=== PATIENT | male | born 1975 | race Caucasian/White ===

== ENCOUNTER 2020-05-31 11:57 | Outpatient (CLI) | payer BC, SELFPAY ==
[2020-05-31 12:23] LABS: Basophils Percent Auto 0.2 % (0.2-1.2); Eosinophils Absolute Auto 0.2 K/mm3 (0-0.3); Eosinophils Percent Auto 1.3 % (0-4.4); Hematocrit 49.1 % (42.0-52.0); Hemoglobin 16.8 g/dL (14.0-18.0); Immature Granulocyte Absolute 0.06 K/mm3 (0.00-0.031); Immature Granulocyte Percent A 0.4 % (0-0.5); Lymphocytes Absolute Auto 2.75 K/mm3 (0.9-3.2); Lymphocytes Percent Auto 20.6 % (18.3-44.2); Mean Corpuscular HGB Conc 34.2 g/dl (32-36); Mean Corpuscular Hemoglobin 30.3 pg (26-34); Mean Corpuscular Volume 88.6 fl (80-100); Mean Platelet Volume 9.6 fl (7.4-10.4); Monocytes Percent Auto 7.1 % (2.6-8.5); Neutrophils Absolute Auto 9.4 K/mm3 (1.3-6.7); Neutrophils Percent Auto 70.4 % (45.5-73.1); Platelet Count Result 277 k/mm3 (150-375); Red Blood Count 5.54 M/mm3 (4.6-6.20); Red Cell Distribution Width 12.7 % (11.5-14.5); White Blood Count 13.4 K/mm3 (4.5-10.0)
[2020-05-31 13:21] LABS: Alanine Aminotransferase 36 U/L (4-50); Albumin Level 4.5 g/dL (3.5-5.1); Alkaline Phosphatase 51 U/L (38-126); Anion Gap 7 mmol/L (8-16); Aspartate Amino Transferase 45 U/L (17-59); Bilirubin,Total 0.7 mg/dL (0.2-1.3); Blood Urea Nitrogen 18 mg/dL (9-20); Calcium 8.8 mg/dL (8.4-10.2); Carbon Dioxide 27 mmol/L (22-30); Chloride 103 mmol/L (98-107); Cholesterol 170 mg/dL (0-200); Estimated Glomerular Filt Rate > 60; Glucose 104 mg/dL (75-110); HDL Direct 30 mg/dL; LDL Cholesterol Direct 116 mg/dL; Potassium 4.8 mmol/L (3.4-5.0); Sodium 137 mmol/L (137-145); Triglycerides 170 mg/dL (<150)
== END 2020-05-31 11:58 | disposition home or self-care (01) ==
PROVIDERS: PCP Internal Medicine; Visit Provider Nurse Practitioner
DX: E78.5 Hyperlipidemia, unspecified (principal); I10 Essential (primary) hypertension; R79.89 Other specified abnormal findings of blood chemistry
CPT/HCPCS: 36415; 80053; 80061; 84443; 85025

== ENCOUNTER 2021-08-30 16:37 | Observation (INO) | payer BC, SELFPAY ==
[2021-08-30] VITALS (7 sets, daily range): BP systolic 122–164; BP diastolic 82–98; PULSE 69–121; RESP 16–21; TEMP 36.1–36.7; O2SAT 95–100
--- NOTE | ~2021-08-30 | US_ITS ---
EXAMINATION: US scrotum doppler DATE: 08/30/2021 19:46 INDICATION: Left testicular pain. TECHNIQUE: Grayscale and Doppler ultrasound images of the testes were obtained. COMPARISON: CT abdomen and pelvis, same date FINDINGS: The right testis measures 4.0 x 3.2 x 2.2 cm. The left testis measures 3.5 x 2.6 x 2.2 cm. There is normal vascular flow to both testes. The right epididymis is normal with normal vascular morneo w. The left epididymis is normal with normal vascular flow. There is no varicocele or hydrocele. IMPRESSION: 1. Normal scrotal ultrasound findings. Reviewed, dictated and finalized at location K.
--- NOTE | ~2021-08-30 | CT_ITS ---
EXAMINATION: CT abdomen pelvis w con DATE: 08/30/2021 18:52 INDICATION: abd pain TECHNIQUE: Computed tomography (CT) of the abdomen and pelvis was performed without intravenous contr ast. Automated exposure control and iterative reconstruction technique were employed. The dose-length product was 662.64 mGy-cm. COMPARISON: 03/21/2019. FINDINGS: Lower thorax: Unremarkable. Liver: Normal. Biliary/Gallbladder: Gallbladder is normal. No bile duct dilation. Spleen: Normal. Pancreas: No mass or duct dilation. Adrenals:Bilateral adrenal adenomas. Kidneys: No mass, stone, or hydronephrosis. GI tract: No small or large bowel dilation. Normal appendix. Mesentery/Peritoneum: No ascites, mass, or free air. Retroperitoneum: No mass. Pelvis: Bladder wall thickening likely due to chronic outlet obstruction. Prostatomegaly with calcifi cations.. Bones/Soft Tissues: Soft tissues and body wall unremarkable. No acute osseous finding. Additional Findings: None. IMPRESSION: No acute abdominopelvic process. Reviewed, dictated and finalized at location K.
[2021-08-30] MEDS: ONDANSETRON INJ 4 MG/2 ML VIAL IV PUSH (17:30)
[2021-08-30] MEDS: SODIUM CHLORIDE 0.9% IV 1,000 ML 999 ML IV CONT (17:31)
[2021-08-30] MEDS: KETOROLAC 30 MG/ML VIAL (*BKC) IV PUSH ×2 (17:31→23:28)
[2021-08-30 17:32] LABS: Basophils Absolute Auto 0.1 K/mm3 (0.0-0.1); Basophils Percent Auto 0.2 % (0.2-1.2); Eosinophils Absolute Auto 0.2 K/mm3 (0-0.3); Eosinophils Percent Auto 0.7 % (0-4.4); Hematocrit 45.1 % (42.0-52.0); Hemoglobin 15.6 g/dL (14.0-18.0); Immature Granulocyte Absolute 0.08 K/mm3 (0.00-0.031); Immature Granulocyte Percent A 0.4 % (0-0.5); Mean Corpuscular HGB Conc 34.6 g/dl (32-36); Mean Corpuscular Hemoglobin 30.4 pg (26-34); Mean Corpuscular Volume 87.9 fl (80-100); Mean Platelet Volume 9.3 fl (7.4-10.4); Monocytes Absolute Auto 1.7 K/mm3 (0.1-0.6); Monocytes Percent Auto 7.4 % (2.6-8.5); Neutrophils Absolute Auto 16.9 K/mm3 (1.3-6.7); Neutrophils Percent Auto 75.3 % (45.5-73.1); Platelet Count Result 272 k/mm3 (150-375); Red Blood Count 5.13 M/mm3 (4.6-6.20); Red Cell Distribution Width 12.9 % (11.5-14.5); White Blood Count 22.5 K/mm3 (4.5-10.0)
[2021-08-30 17:48] LABS: Alanine Aminotransferase 44 U/L (4-50); Albumin Level 4.7 g/dL (3.5-5.1); Alkaline Phosphatase 65 U/L (38-126); Anion Gap 10 mmol/L (8-16); Aspartate Amino Transferase 39 U/L (17-59); Bilirubin,Total 0.6 mg/dL (0.2-1.3); Blood Urea Nitrogen 14 mg/dL (9-20); Calcium 9.2 mg/dL (8.4-10.2); Carbon Dioxide 22 mmol/L (22-30); Chloride 104 mmol/L (98-107); Estimated CRCL calculation 103 ml/min; Estimated Glomerular Filt Rate > 60; Glucose 81 mg/dL (65-110); Lipase 34 U/L (23-300); Potassium 3.6 mmol/L (3.4-5.0); Sodium 136 mmol/L (137-145)
[2021-08-30 18:10] LABS: Add Urine Microscopic? YES; Appearance Urine Cloudy (Clear); Bilirubin Urine Negative (Negative); Blood Urine Negative (Negative); Color Urine Yellow (Yellow); Glucose Urine UA Negative (Negative); Ketones Urine Negative (Negative); Leukocyte Esterase Ur Negative LEU/UL (Negative); Mucus Urine Few /lpf; Nitrate Urine Negative (Negative); Protein Urine Negative (Negative); RBC Urine 0-2 /hpf (0-2); Squamous Epithelial Cell Urine Rare /hpf (Few); Urobilinogen Urine Negative mg/dL (<2.0); WBC Urine 0-3 /hpf
[2021-08-30] MEDS: MORPHINE SULFATE (*CRX) 4 MG/ML INJ IV PUSH ×3 (19:01→22:42)
--- NOTE | 2021-08-30 19:32 | PC.NURSE ---
Report received from BRISEYDA Edwards. This nurse assumed care of patient at this time.
--- NOTE | 2021-08-30 19:36 | ED.GENADULT ---
HPI - General Adult General Chief complaint: Back Pain/Injury Stated complaint: Possible Kidney Stones Time Seen by Provider: 08/30/21 16:44 Source: RN notes reviewed History of Present Illness HPI narrative: Patient presents emergency department from home for flank pain. Patient states that he has pain in his left flank that radiates around his left lower abdomen into his left testicle the described as a vice he also states the pain goes into his bilateral hips pain is described as sharp and stabbing states that he has had episodes of nausea and vomiting with the pain. Patient states he has a history of kidney stones and feels like prior he denies any fevers or chills chest pain shortness of breath diarrhea nausea or tingling in extremities or any other symptoms states he does have pain down into his left testicle. Denies taking pain medication today patient states he has been having dysuria for the past 2 days as well as frequent urination he denies any numbness or weakness of the extremities denies any bowel or bladder incontinence denies any rectal pain Related Data Home Medications Medication Instructions Recorded Confirmed tramadol 50 mg PO Q6H PRN 03/30/19 06/04/20 Myrbetriq 25 mg PO DAILY 05/04/19 06/04/20 Allergies Allergy/AdvReac Type Severity Reaction Status Date / Time No Known Allergies Allergy Verified 08/30/21 18:10 Review of Systems Review of Systems: Gen.: Denies fevers or chills ENT: Denies congestion Respiratory: Denies shortness of breath or cough CV: Denies chest pain or palpitations GI: Reports left lower quadrant abdominal pain nausea vomiting denies diarrhea reports left flank tenderness see HPI Musculoskeletal: Denies back pain or muscle pain Neuro: Denies numbness, tingling, weakness or focal weakness Skin: Denies rash Except as documented, all other systems reviewed and negative [facility] Past Medical History Medical History Alcohol-induced acute pancreatitis without infection or necrosis Elevated ALT measurement Elevated TSH Erectile dysfunction Generalized anxiety disorder GERD (gastroesophageal reflux disease) Hepatic steatosis HTN (hypertension) Hyperlipidemia Lumbar radiculopathy Obesity Other chronic pain Recurrent nephrolithiasis Smoker Spinal stenosis of lumbar region Tachycardia Surgical History Surgical History (Updated 04/06/19 @ 11:58 by Henrry Junior MD) Status post cystoscopy Family History Family History (Updated 08/18/18 @ 09:35 by DOCTOR UNKNOWN) Father Diabetes mellitus Hypertension Grandparent Diabetes mellitus Hypertension Social History Social History Social History: 1 PPD x 25 years Smoking status: Current every day smoker Smoking end date: 11/20/18 Alcohol intake: current Exam Narrative: APPEARANCE: No acute distress, nontoxic, resting in bed EYES: EOMI HEENT: Normocephalic, atraumatic, OMM RESPIRATORY: No respiratory distress Clear to auscultation bilaterally with no rhonchi wheezing or rales. CARDIOVASCULAR: Regular rate and rhythm without murmurs rubs or gallops. ABDOMINAL: Soft, nondistended tender palpation left lower quadrant no tenderness left upper quadrant, right upper quadrant right lower quadrant no rebound or guarding : Normal external exam no scrotal swelling or erythema mild tenderness over the left superior testicle Back no midline thoracic lumbar tenderness palpation from palpation of the left paravertebral muscles L3-5 no overlying erythema or signs of infection MUSCULOSKELETAl: Moves all extremities. No clubbing, cyanosis or edema. NEURO: Awake and alert. Following commands, speech normal, no focal deficits SKIN:: Warm, dry. No rashes lesions or abrasions PSYCHIATRIC: Normal affect/mood, Course Course Emergency Course: Called and discussed Dr. Palencia agrees with consult Discussed with Dr. Watson
--- NOTE | 2021-08-30 19:39 | PC.NURSE ---
Patient in [place] at this time.
[2021-08-30 19:47] LABS: Lactic Acid Reflex 0.7 mmol/L (0.7-2.1)
--- NOTE | 2021-08-30 20:55 | PM.IMHP ---
H&P: HPI History of Present Illness Date/Time: 08/30/21 20:55 Chief Complaint: Pelvic pain. Narrative: This is a 45-year-old male with past medical history significant for dyslipidemia, gastroesophageal reflux disease, hypertension, major depression, tobacco dependence smokes 1 pack to half pack a day. Patient presents to the emergency room due to pain localized to the left lower quadrant with radiation to the scrotum bilaterally for the last week or so pain now has progressively gotten worse and has remained constant he rates the pain a 10/10 in intensity is like a stabbing pain is interfering with his walking as well as it makes it worse had 1 episode of diarrhea denies any penile discharge or difficulty voiding had some burning with urination, denies any fevers rigors or chills, no nausea, no vomiting. Patient has been his usual state of health prior to this. Preliminary workup was significant for a white count of 22,500, a CT of abdomen and pelvis did not show any acute intra-abdominal abnormalities, scrotal ultrasound did not show any abnormalities as well. Patient has been admitted for further evaluation management and treatment. Review of Systems Review of Systems: Pelvic pain with radiation to the scrotum. Constitutional: Constitutional: Denies chills, Denies fever(s), Denies malaise, Denies night sweats, Denies poor appetite and Denies weakness Eyes: Eyes: Denies change in vision ENT: Denies dysphagia, Denies vertigo, Denies dizziness, Denies nasal congestion, Denies nasal discharge, Denies nasal obstruction and Denies odynophagia Cardiovascular: Cardiovascular: Denies chest pain, Denies pedal edema, Denies leg edema, Denies radiating jaw, neck or arm pain, Denies palpitations, Denies dyspnea on exertion, Denies orthopnea and Denies paroxysmal nocturnal dyspnea Respiratory: Respiratory: Denies change in phlegm color, Denies cough, Denies excessive phlegm production, Denies dyspnea and Denies wheezing Gastrointestinal: Gastrointestinal: Reports abdominal pain, Denies tenesmus, Denies dyspepsia, Denies heartburn, Reports diarrhea, Denies nausea and Denies vomiting Genitourinary: Genitourinary: Denies dysuria, Denies flank pain, Denies penile discharge and Reports testicular pain Musculoskeletal: Musculoskeletal: Reports back pain Integumentary/Breasts: Skin/Breast: Denies rash Neurologic: Denies focal weakness and Denies Sensory deficit (Neuro) Psychiatric: Psychiatric: Reports no additional psychiatric complaints and Reports as per HPI Endocrine: Endocrine: Denies cold intolerance, Denies heat intolerance, Denies polydipsia and Denies palpitations Hematologic/Lymphatic: Hematologic/Lymphatic: Reports no additional hematologic/lymphatic complaints and Reports as per HPI Allergic/Immunologic: Allergic/Immunologic: Reports no additional allergic/immunologic complaints and Reports as per HPI [facility] Past Medical History Medical History (Updated 08/31/21 @ 02:13 by Aracelis Kimbrough MD) Alcohol-induced acute pancreatitis without infection or necrosis Elevated ALT measurement Elevated TSH Erectile dysfunction Generalized anxiety disorder GERD (gastroesophageal reflux disease) Hepatic steatosis HTN (hypertension) Hyperlipidemia Lumbar radiculopathy Obesity Other chronic pain Recurrent nephrolithiasis Smoker Spinal stenosis of lumbar region Tachycardia Surgical History Surgical History (Updated 04/06/19 @ 11:58 by Henrry Junior MD) Status post cystoscopy Family History Family History Father Diabetes mellitus Hypertension Grandparent Diabetes mellitus Hypertension Social History Social History Social History: 1 PPD x 25 years Smoking packs per day: 1 Smoking cigarettes per day: 20.0 Years smoked: 25 Smoking pack-years: 25.00 Smoking status: Current every day smoker Tobacco type:
--- NOTE | 2021-08-30 22:15 | ADMGEN ---
This patient, Jose Jesus, was admitted to Medical Room 341-01. Patient/family oriented to hospital policies and general routines including ID bracelet, bed and alarms, visiting hours, pain management, procedures, bathroom and other care routines, personal items, smoking policy, room service/diet, and visiting hours. Information on how to activate the Rapid Response Team has been discussed. Patient/Family are encouraged to report perceived risks to care and to ask questions if they do not understand what they are told or what they should do.
[2021-08-30] MEDS: SODIUM CHLORIDE 0.9% IV 1,000 ML 125 ML IV CONT (22:21)
[2021-08-30] MEDS: NICOTINE (*PBKC) 21 MG PATCH 1 PATCH TRANSDERM (23:12)
[2021-08-30] MEDS: HYDROmorphone HCL INJ (*CRX) 1 MG/ML SYR IV PUSH (23:28)
[2021-08-31] MEDS: MORPHINE SULFATE (*CRX) 4 MG/ML INJ IV PUSH (02:11)
[2021-08-31] MEDS: HYDROmorphone HCL INJ (*CRX) 1 MG/ML SYR IV PUSH ×5 (03:07→17:55)
[2021-08-31 05:22] LABS: Basophils Percent Auto 0.2 % (0.2-1.2); Eosinophils Absolute Auto 0.3 K/mm3 (0-0.3); Eosinophils Percent Auto 1.9 % (0-4.4); Hematocrit 40.5 % (42.0-52.0); Hemoglobin 13.9 g/dL (14.0-18.0); Immature Granulocyte Absolute 0.05 K/mm3 (0.00-0.031); Immature Granulocyte Percent A 0.4 % (0-0.5); Lymphocytes Absolute Auto 4.13 K/mm3 (0.9-3.2); Lymphocytes Percent Auto 30.5 % (18.3-44.2); Mean Corpuscular HGB Conc 34.3 g/dl (32-36); Mean Corpuscular Hemoglobin 30.7 pg (26-34); Mean Corpuscular Volume 89.4 fl (80-100); Mean Platelet Volume 9.7 fl (7.4-10.4); Monocytes Absolute Auto 0.7 K/mm3 (0.1-0.6); Monocytes Percent Auto 5.4 % (2.6-8.5); Neutrophils Absolute Auto 8.3 K/mm3 (1.3-6.7); Neutrophils Percent Auto 61.6 % (45.5-73.1); Platelet Count Result 241 k/mm3 (150-375); Red Blood Count 4.53 M/mm3 (4.6-6.20); Red Cell Distribution Width 13.2 % (11.5-14.5); White Blood Count 13.5 K/mm3 (4.5-10.0)
[2021-08-31 05:35] LABS: Alanine Aminotransferase 34 U/L (4-50); Albumin Level 3.6 g/dL (3.5-5.1); Alkaline Phosphatase 45 U/L (38-126); Anion Gap 4 mmol/L (8-16); Aspartate Amino Transferase 30 U/L (17-59); Bilirubin,Total 0.3 mg/dL (0.2-1.3); Blood Urea Nitrogen 18 mg/dL (9-20); Calcium 8.1 mg/dL (8.4-10.2); Carbon Dioxide 27 mmol/L (22-30); Chloride 106 mmol/L (98-107); Estimated CRCL calculation 103 ml/min; Estimated Glomerular Filt Rate > 60; Glucose 129 mg/dL (65-110); Potassium 3.9 mmol/L (3.4-5.0); Sodium 137 mmol/L (137-145)
[2021-08-31 06:00] VITALS: BP 143/90; PULSE 65; RESP 18; TEMP 35.9; O2SAT 100
[2021-08-31] MEDS: SODIUM CHLORIDE 0.9% IV 1,000 ML 125 ML IV CONT ×2 (06:06→14:32)
[2021-08-31 09:00] VITALS: O2SAT 100
[2021-08-31] MEDS: PANTOPRAZOLE 40 MG TABLET PO (09:01)
[2021-08-31] MEDS: lisinopriL 10 MG TABLET PO (09:01)
[2021-08-31] MEDS: ATORVASTATIN 10 MG TABLET PO (09:01)
[2021-08-31] MEDS: ESCITALOPRAM OXALATE 10 MG TABLET PO (09:01)
[2021-08-31] MEDS: NICOTINE (*PBKC) 21 MG PATCH 1 PATCH TRANSDERM (10:08)
[2021-08-31] MEDS: HYDROcodone/acetaminophen (*CRX) 5-325 MG TABLET 1 TAB PO ×2 (12:11→21:09)
--- NOTE | 2021-08-31 12:37 | WPDURCON ---
Assessment and Plan Assessment and plan (1) Lumbar radiculopathy: Code(s): M54.16 - Radiculopathy, lumbar region Status: Acute (2) Acute prostatitis: Code(s): N41.0 - Acute prostatitis Status: Acute Assessment and Plan: The patient notes improvement of symptoms and pain after starting Levaquin. Hiis WBC has shown significant improvement as well. His TOVA does support a mildly edematous prostate with tenderness upon palpation, as well as dysuria and painful ejaculation within the past week. His bilateral radiating pain to both lower extremities doesn't co-inside with prostatitis which does suggest that he may have lumbar radiculopathy in addition to prostatitis. Scrotal exam was normal as was his CT/scrotal US. I recommend he continue Levaquin for 10 days orally after discharge and follow up with us. No further evaluation needed, ok to discharge when hospitalist determines he is stable. Urology Consult Note HPI Date Seen: 08/31/21 Requesting Physician: Aracelis Kimbrough MD Primary Care Provider: Faisal Gill DO Consult Narrative Narrative: Jose Jesus is a 45 year old male who presented to the ER last night for acute onset of low back pain that radiated to bilateral lower extremities and his testicles. He states he has a history of bulging discs in his spine that were treated with PT and manager urgent care and his pain improved. He also c/o dysuria and painful ejaculation x 1-2 weeks. He denies hematuria, frequency, urgency or pelvic pain. He is afebrile, WBC was elevated at 22.5 on admission, creatinine is stable at 0.90. He had a CT of the abdomen and pelvis yesterday, as well as a scrotal US, which were both negative for urologic findings. He does mention he has a history of kidney stones that he passed spontaneously and has never seen a uroloigst. He denies symptom of BPH or difficulty with urination or chronic UTI's. His UA is normal from yesterday as well. He was started on Levaquin and a blood/urine culture are pending at this time. His WBC has decreased nicely on Levaquin to 13.5. [facility] Past Medical History Medical History Alcohol-induced acute pancreatitis without infection or necrosis Elevated ALT measurement Elevated TSH Erectile dysfunction Generalized anxiety disorder GERD (gastroesophageal reflux disease) Hepatic steatosis HTN (hypertension) Hyperlipidemia Lumbar radiculopathy Obesity Other chronic pain Recurrent nephrolithiasis Smoker Spinal stenosis of lumbar region Tachycardia Surgical History Surgical History Status post cystoscopy Family History Family History Father Diabetes mellitus Hypertension Grandparent Diabetes mellitus Hypertension Social History Social History Social History: 1 PPD x 25 years Smoking packs per day: 1 Smoking cigarettes per day: 20.0 Years smoked: 25 Smoking pack-years: 25.00 Smoking status: Current every day smoker Tobacco type: cigarettes Second hand tobacco smoke exposure: No Smoking end date: 11/20/18 Alcohol intake: never Substance use: never Substance use type: does not use Spiritual care concerns: No Meds Home Medications and Allergies Home Medications Medication Instructions Recorded Confirmed Type omeprazole 20 mg tablet,delayed 20 mg PO DAILY #90 tablet 06/04/20 08/30/21 Rx release escitalopram oxalate 10 mg tablet 10 mg PO DAILY #90 tablet 05/18/21 08/30/21 Rx lisinopril 10 mg tablet 10 mg PO DAILY #90 tablet 06/01/21 08/30/21 Rx atorvastatin 10 mg tablet 10 mg PO DAILY #30 tablet 08/12/21 08/30/21 Rx Allergies Allergy/AdvReac Type Severity Reaction Status Date / Time No Known Allergies Allergy Verified 08/31/21 05:43 Vital Signs Vital Sig
[2021-08-31 14:34] VITALS: BP 141/93; PULSE 67; RESP 20; TEMP 36.3; O2SAT 100
--- NOTE | 2021-08-31 15:29 | PM.IMPN ---
Progress Note: A&P Assessment and Plan (1) Acute prostatitis: Code(s): N41.0 - Acute prostatitis Status: Acute Assessment and Plan: awaiting cultures Dc in 1-2 day time Patient started on levofloxacin Urology consulted Supportive care (2) HTN (hypertension): Qualifiers: Hypertension type: essential hypertension Qualified Code(s): I10 - Essential (primary) hypertension Code(s): I10 - Essential (primary) hypertension Status: Acute Assessment and Plan: Resume home meds Continue to monitor (3) GERD (gastroesophageal reflux disease): Code(s): K21.9 - Gastro-esophageal reflux disease without esophagitis Status: Acute Assessment and Plan: Resume home meds Continue to monitor (4) Alcohol abuse: Code(s): F10.10 - Alcohol abuse, uncomplicated Status: Acute Assessment and Plan: Continue to monitor Supportive care (5) Smoker: Code(s): F17.200 - Nicotine dependence, unspecified, uncomplicated Status: Acute Assessment and Plan: Nicotine patch as needed Consult about tobacco cessation (6) Hyperlipidemia: Qualifiers: Hyperlipidemia type: mixed hyperlipidemia Qualified Code(s): E78.2 - Mixed hyperlipidemia Code(s): E78.5 - Hyperlipidemia, unspecified Status: Acute Assessment and Plan: Continue home meds (7) Lumbar radiculopathy: Code(s): M54.16 - Radiculopathy, lumbar region Status: Acute Assessment and Plan: Tylenol as needed p.r.n. Subjective Date/time seen: 08/31/21 15:29 Interval history: 45-year-old male with past medical history significant for dyslipidemia, gastroesophageal reflux disease, hypertension, major depression, tobacco dependence smokes 1 pack to half pack a day. Pt is here with prostitis. Cultures are pending. Pt feels better since starting levaquin. Review of Systems Review of Systems: All systems reviewed & are unremarkable except as noted in HPI and below Exam Const: General: cooperative and healthy appearing; No in distress Nutritional Appearance: overweight Orientation/consciousness: oriented to person HENMT: Head: normal to inspection Resp: Effort & Inspection: no respiratory distress Auscultation: no rhonchi and no wheezes Cardio: Rate: regular rate Rhythm: regular rhythm GI: Inspection: normal to inspection GI Palp: No abdominal tenderness, No Guarding due to palpation present (GI) and No Hepatomegaly present Auscultation: normal bowel sounds : General: Yes other (not fully examined ) Neuro: General: oriented to person Objective Data Vital Signs Vital Signs: Vital Signs - 24 hr 08/30/21 16:41 08/30/21 17:31 08/30/21 18:10 Temperature 36.6 C Pulse Rate 121 H 81 80 Respiratory Rate 19 21 H 18 Blood Pressure 164/92 H 134/97 H 147/88 H Pulse Oximetry 100 98 98 08/30/21 19:49 08/30/21 21:27 08/30/21 22:06 Temperature 36.7 C Pulse Rate 73 73 72 Respiratory Rate 17 17 18 Blood Pressure 158/91 H 138/98 H 122/82 Pulse Oximetry 98 96 95 08/30/21 23:00 08/31/21 06:00 08/31/21 09:00 Temperature 36.1 C L 35.9 C L Pulse Rate 69 65 Respiratory Rate 16 18 Blood Pressure 135/85 143/90 H Pulse Oximetry 98 100 100 08/31/21 14:34 Temperature 36.3 C L Pulse Rate 67 Respiratory Rate 20 Blood Pressure 141/93 H Pulse Oximetry 100 Intake/Output Intake/Output: Intake & Output 08/28/21 08/29/21 08/30/21 08/31/21 23:59 23:59 23:59 23:59 Intake Total 1150 3270 Output Total 900 Balance 1150 2370 Meds/Results Medications: Active Medications Generic Name Dose Route Start Last Admin Trade Name Freq PRN Reason Stop Dose Admin Hydrocodone Bitart/Acetaminophen 1 tab 08/31/21 12:00 08/31/21 12:11 Hydrocodone/Acetaminophen (*Crx) 5-325 Mg Tablet PO 1 tab Q6H PRN Administration Pain Rated 4-6 Atorvastatin Calcium 10 mg 08/31/21 09:00 08/31/21 09:01 Atorvastati
[2021-08-31 19:44] VITALS: BP 131/75; PULSE 61; RESP 18; TEMP 36.6; O2SAT 99
[2021-09-01] MEDS: HYDROcodone/acetaminophen (*CRX) 5-325 MG TABLET 1 TAB PO ×2 (03:38→09:10)
[2021-09-01 06:00] VITALS: BP 128/68; PULSE 64; RESP 16; TEMP 36.8; O2SAT 100
[2021-09-01 07:48] LABS: Anion Gap 5 mmol/L (8-16); Blood Urea Nitrogen 16 mg/dL (9-20); Calcium 8.4 mg/dL (8.4-10.2); Carbon Dioxide 24 mmol/L (22-30); Chloride 109 mmol/L (98-107); Estimated CRCL calculation 115 ml/min; Estimated Glomerular Filt Rate > 60; Glucose 95 mg/dL (65-110); Potassium 4.3 mmol/L (3.4-5.0); Sodium 138 mmol/L (137-145)
[2021-09-01] MEDS: NICOTINE (*PBKC) 21 MG PATCH 1 PATCH TRANSDERM (09:00)
[2021-09-01] MEDS: ATORVASTATIN 10 MG TABLET PO (09:01)
[2021-09-01] MEDS: ESCITALOPRAM OXALATE 10 MG TABLET PO (09:01)
[2021-09-01] MEDS: lisinopriL 10 MG TABLET PO (09:01)
[2021-09-01] MEDS: PANTOPRAZOLE 40 MG TABLET PO (09:01)
--- NOTE | 2021-09-01 12:19 | PM.DS ---
DS: Admitting Diagnosis Discharge Date 09/01/2021 Admitting Diagnosis Pelvic pain DS: Discharge Diagnosis Discharge Diagnosis (1) Acute prostatitis: Code(s): N41.0 - Acute prostatitis Status: Acute Assessment and Plan: Bc are negative Patient started on levofloxacin iv here pt can transition to oral levofloxacin Urology consulted continue present care and follow up in clinic Supportive care (2) HTN (hypertension): Qualifiers: Hypertension type: essential hypertension Qualified Code(s): I10 - Essential (primary) hypertension Code(s): I10 - Essential (primary) hypertension Status: Acute Assessment and Plan: Resume pt own home meds Bp is stable (3) GERD (gastroesophageal reflux disease): Code(s): K21.9 - Gastro-esophageal reflux disease without esophagitis Status: Acute Assessment and Plan: Resume pt own home meds Continue to monitor (4) Alcohol abuse: Code(s): F10.10 - Alcohol abuse, uncomplicated Status: Acute Assessment and Plan: Advised to quit drinking alcohol Supportive care (5) Smoker: Code(s): F17.200 - Nicotine dependence, unspecified, uncomplicated Status: Acute Assessment and Plan: Nicotine patch as needed Consult about tobacco cessation (6) Hyperlipidemia: Qualifiers: Hyperlipidemia type: mixed hyperlipidemia Qualified Code(s): E78.2 - Mixed hyperlipidemia Code(s): E78.5 - Hyperlipidemia, unspecified Status: Acute Assessment and Plan: Continue home meds (7) Lumbar radiculopathy: Code(s): M54.16 - Radiculopathy, lumbar region Status: Acute Assessment and Plan: Tylenol as needed p.r.n. DS: Summary Hospital Course Hospital Course: 45-year-old male with past medical history significant for dyslipidemia, gastroesophageal reflux disease, hypertension, major depression, tobacco dependence smokes 1 pack to half pack a day. Pt is here with prostatitis. Cultures are pending. Pt feels better since starting levaquin. CT and US reviewed. Time Spent with Patient Time attestation: Total time spent providing and/or coordinating discharge services:45 minutes on day of discharge Exam Const: General: cooperative and healthy appearing; No in distress Nutritional Appearance: overweight Orientation/consciousness: oriented to person HENMT: Head: normal to inspection Resp: Effort & Inspection: no respiratory distress Auscultation: no rhonchi and no wheezes Cardio: Rate: regular rate Rhythm: regular rhythm GI: Inspection: normal to inspection Auscultation: normal bowel sounds : General: Yes other (not fully examined ) Neuro: General: oriented to person DS: Data Data Completed and Pending Labs on day of discharge: Labs from last 24 hours 09/01/21 07:28 Sodium 138 Potassium 4.3 Chloride 109 H Carbon Dioxide 24 Anion Gap 5 L BUN 16 Creatinine 0.80 Estim Creat Clear Calc 115 Estimated GFR > 60 Glucose 95 Calcium 8.4 Preliminary micro results at discharge 08/30/21 19:30 Blood Culture - Preliminary Blood 08/30/21 19:30 Blood Culture - Preliminary Blood Discharge Plan Discharge Attending physician on discharge: Cornelia Akins Consulting providers: Connor Fleming Discharging Clinician: Cornelia Akins Anticipated Discharge Date/Time: 09/01/21 12:16 Patient Disposition: Home, Self-Care Activity: as tolerated Diet: heart healthy Discharge Instructions: Urology Instructions: Finish your antibiotics, our office will call you to schedule a hospital follow up appointment in 2 weeks. Patient Instructions: Antibiotic Form, How to Stop Smoking (GEN) Stand Alone Forms: General Discharge Information Follow-up/Referrals: Vonda Ladd, CLINICAL LABORATORY TECHNOLOGIST [Advanced Practice Nurse] - Discharge Medications: New nicotine [Nicoderm CQ] 21 mg/24 hr Patch 24 Hour 1 patch
== END 2021-09-01 13:40 | disposition home or self-care (01) ==
LOC: ANHED 21:38 → ANH3MED 08-31 01:08
PROVIDERS: Admitting Provider Internal Medicine; Emergency Provider Emergency Medicine; PCP Internal Medicine; Visit Provider Family Medicine
DX: N41.0 Acute prostatitis (principal); R11.2 Nausea with vomiting, unspecified; M54.16 Radiculopathy, lumbar region; I10 Essential (primary) hypertension; E78.5 Hyperlipidemia, unspecified; F10.10 Alcohol abuse, uncomplicated; K21.9 Gastro-esophageal reflux disease without esophagitis; K76.0 Fatty (change of) liver, not elsewhere classified; F41.1 Generalized anxiety disorder; E66.9 Obesity, unspecified; Z68.32 Body mass index [BMI] 32.0-32.9, adult; F17.210 Nicotine dependence, cigarettes, uncomplicated; F32.9 Major depressive disorder, single episode, unspecified
CPT/HCPCS: 36415; 74177; 76870; 80048; 80053; 81001; 83605; 83690; 85025; 87040; 87086; 93976; 96361; 96365; 96372; 96375; 96376; 99285; A9270; G0378; J1170; J1885; J1956; J2270; J2405; J7030; Q9967

== ENCOUNTER 2021-09-20 09:58 | Outpatient (CLI) | payer BC, SELFPAY ==
--- NOTE | ~2021-09-20 | MR_ITS ---
EXAMINATION: MR lumbar spine wo con DATE: 09/20/2021 10:40 INDICATION: Radiculopathy, lumbar region. TECHNIQUE: Magnetic resonance imaging (MRI) of the lumbar spine was performed without intravenous con trast. Sequences included sagittal T2-weighted FSE, sagittal T2-weighted FS FSE, sagittal T1-weighted FSE, and axial T2-weighted FSE. COMPARISON: None FINDINGS: There is 3 degrees levocurvature of lumbar spine. There is mild chronic anterior wedging of T12 and L2 vertebral bodies, likely physiologic. Intervertebral disc heights are normal. The distal spinal cord signal intensity is normal. The conus medullaris is at L1. The following disc levels are specifically discussed: L1-L2: The disc does not extend beyond the endplate margin. There is mild bilateral facet joint osteo arthritis. There is no neural foraminal stenosis. There is no central canal stenosis. L2-L3: The disc is mildly bulging. There is severe right and moderate left facet joint osteoarthritis . There is mild bilateral neural foraminal stenosis. There is no central canal stenosis. L3-L4: The disc is mildly bulging and has an annular fissure. There is moderate bilateral facet joint osteoarthritis. There is mild right and moderate left neural foraminal stenosis. There is no central canal stenosis. L4-L5: The disc is bulging and has an annular fissure. There is mild bilateral facet joint osteoarthr itis. There is mild right and moderate left neural foraminal stenosis. There is mild central canal st enosis. L5-S1: The disc is bulging. There is mild bilateral facet joint osteoarthritis. There is mild bilater al neural foraminal stenosis. There is mild central canal stenosis. IMPRESSION: 1. Moderate lumbar spondylosis. Reviewed, dictated and finalized at location B.
== END 2021-09-20 09:59 | disposition home or self-care (01) ==
PROVIDERS: PCP Internal Medicine; Visit Provider Clinical Nurse Specialist
DX: M54.16 Radiculopathy, lumbar region (principal); M43.06 Spondylolysis, lumbar region
CPT/HCPCS: 72148

== ENCOUNTER 2021-12-01 12:59 | Emergency (ER) | payer BC, SELFPAY ==
--- NOTE | ~2021-12-01 | CT_ITS ---
EXAMINATION: CT abdomen pelvis w con DATE: 12/01/2021 15:35 INDICATION: Right upper quadrant and epigastric pain TECHNIQUE: Computed tomography (CT) of the abdomen and pelvis was performed with 100 cc Omnipaque 300 intravenous contrast. The dose-length product was 690.27 mGy-cm. Automated exposure control and iter ative reconstruction technique were employed. COMPARISON: CT dated 08/30/2021 FINDINGS: Lung bases are unremarkable. Heart size normal. No significant pleural or pericardial effus ion. Stable bilateral adrenal masses, most likely benign adenomas. The liver, spleen, pancreas, kidne ys are unremarkable. No hydronephrosis. Gallbladder is present. There is mild thickening of the duode num with subtle surrounding inflammation, suspicious for duodenitis. No obstruction. No free air or f ree fluid. No acute osseous abnormality. IMPRESSION: 1. Mild thickening of the duodenum with subtle surrounding inflammatory change, suspicious for duoden itis. 2: Stable bilateral adrenal masses, likely benign adenomas. Reviewed, dictated and finalized at location A. IMPRESSION: 1. Mild thickening of the duodenum with subtle surrounding inflammatory change, suspicious for duodenitis. 2: Stable bilateral adrenal masses, likely benign adenomas.
[2021-12-01 13:01] VITALS: BP 143/101; PULSE 95; RESP 16; TEMP 36.8; O2SAT 99
[2021-12-01 13:42] LABS: Basophils Percent Auto 0.2 % (0.2-1.2); Eosinophils Percent Auto 0.2 % (0-4.4); Hemoglobin 15.7 g/dL (14.0-18.0); Immature Granulocyte Absolute 0.07 K/mm3 (0.00-0.031); Immature Granulocyte Percent A 0.3 % (0-0.5); Lymphocytes Absolute Auto 3.38 K/mm3 (0.9-3.2); Lymphocytes Percent Auto 15.4 % (18.3-44.2); Mean Corpuscular HGB Conc 34.9 g/dl (32-36); Mean Corpuscular Hemoglobin 30.7 pg (26-34); Mean Corpuscular Volume 88.1 fl (80-100); Mean Platelet Volume 9.4 fl (7.4-10.4); Monocytes Absolute Auto 1.4 K/mm3 (0.1-0.6); Monocytes Percent Auto 6.2 % (2.6-8.5); Neutrophils Absolute Auto 17.1 K/mm3 (1.3-6.7); Neutrophils Percent Auto 77.7 % (45.5-73.1); Platelet Count Result 272 k/mm3 (150-375); Red Blood Count 5.11 M/mm3 (4.6-6.20); Red Cell Distribution Width 12.6 % (11.5-14.5)
[2021-12-01 13:46] LABS: Add Urine Microscopic? YES; Appearance Urine Clear (Clear); Bilirubin Urine 1+ (Negative); Blood Urine Negative (Negative); Color Urine Yellow (Yellow); Glucose Urine UA Negative (Negative); Ketones Urine Negative (Negative); Leukocyte Esterase Ur Negative LEU/UL (Negative); Nitrate Urine Negative (Negative); Protein Urine Negative (Negative); Specific Grav Ur >= 1.030 (1.001-1.035); Urobilinogen Urine 0.2 mg/dL (<2.0)
[2021-12-01 13:55] LABS: Alanine Aminotransferase 34 U/L (6-50); Albumin Level 4.7 g/dL (3.5-5.1); Alkaline Phosphatase 68 U/L (38-126); Anion Gap 7 mmol/L (8-16); Aspartate Amino Transferase 25 U/L (17-59); Bilirubin,Total 0.2 mg/dL (0.2-1.3); Blood Urea Nitrogen 12 mg/dL (9-20); Calcium 9.4 mg/dL (8.4-10.2); Carbon Dioxide 24 mmol/L (22-30); Chloride 105 mmol/L (98-107); Estimated CRCL calculation 115 ml/min; Estimated Glomerular Filt Rate > 60; Glucose 133 mg/dL (65-110); Lipase 382 U/L (23-300); Sodium 136 mmol/L (137-145)
[2021-12-01 14:13] LABS: Mucus Urine Moderate /lpf; RBC Urine 0-2 /hpf (0-2); WBC Urine 0-3 /hpf
--- NOTE | 2021-12-01 14:23 | ED.ABDPAIN ---
HPI - Abdominal Pain General Chief Complaint: Abdominal Pain Stated Complaint: abd pain Time Seen by Provider: 12/01/21 14:17 History of Present Illness HPI narrative: 46-year-old male presents to the emergency room for evaluation of right upper quadrant pain. Patient states that pain is intermittent, worse after he eats and ambulates. Describes the pain as sharp and stabbing and radiates into the epigastrium. Denies fever. Denies nausea or vomiting diarrhea or constipation. States he took Pepto-Bismol multiple times yesterday with little relief of symptoms. Related Data Allergies Allergy/AdvReac Type Severity Reaction Status Date / Time No Known Allergies Allergy Verified 08/31/21 05:43 Review of Systems Review of Systems: CONSTITUTIONAL: Denies fever, chills, or sweats. EYES: Denies visual changes, redness, or discharge. ENT: Denies rhinorrhea, congestion, sore throat, or otalgia. CARDIOVASCULAR: Denies chest pain, palpitations, or edema. RESPIRATORY: Denies cough or dyspnea. GASTROINTESTINAL: Reports right upper quadrant pain GENITOURINARY: Denies dysuria or hematuria. SKIN: Denies rash or itching. MUSCULOSKELETAL: Denies back pain, joint pain, or myalgia. NEUROLOGIC: Denies headache, numbness, dizziness, or weakness. PSYCHIATRIC: Denies anxiety or depression. [facility] Past Medical History Medical History Alcohol-induced acute pancreatitis without infection or necrosis Elevated ALT measurement Elevated TSH Erectile dysfunction Generalized anxiety disorder GERD (gastroesophageal reflux disease) Hepatic steatosis HTN (hypertension) Hyperlipidemia Lumbar radiculopathy Obesity Other chronic pain Recurrent nephrolithiasis Smoker Spinal stenosis of lumbar region Tachycardia Surgical History Surgical History Status post cystoscopy Family History Family History Father Diabetes mellitus Hypertension Grandparent Diabetes mellitus Hypertension Social History Social History Social History: 1 PPD x 25 years Smoking packs per day: 1 Smoking cigarettes per day: 20.0 Years smoked: 25 Smoking pack-years: 25.00 Smoking status: Current every day smoker Tobacco type: cigarettes Second hand tobacco smoke exposure: No Smoking end date: 08/21/21 Alcohol intake: never Substance use: never Substance use type: does not use Spiritual care concerns: No Exam Narrative: GENERAL: Well-appearing, well-nourished, no physical limitations, and in no acute distress. HEAD: Normocephalic, atraumatic. EYES: Conjunctivae normal, PERRLA and EOMI. CHEST: Clear to auscultation. No respiratory distress. No wheezes rales or rhonchi. No tenderness. HEART: Regular rate and rhythm. No murmur heard. Normal peripheral pulses. ABDOMEN: Soft, right upper quadrant tenderness, nondistended, normal active bowel sounds. BACK: No CVA tenderness EXTREMITIES: Normal range of motion. No edema. No clubbing or cyanosis SKIN: Warm, dry, no rash. No noted wounds NEURO: No focal deficits. Alert and oriented x3. MAEW. CN's II-XI intact bilaterally, normal gait PSYCH: Cooperative. Normal mood and affect. Course Vital Signs Vital signs: Vital Signs Temperature 36.8 C 12/01/21 13:01 Pulse Rate 95 12/01/21 13:01 Respiratory Rate 16 12/01/21 13:01 Blood Pressure 143/101 H 12/01/21 13:01 Pulse Oximetry 99 12/01/21 13:01 Oxygen Delivery Room Air 12/01/21 13:01 Temperature 36.8 C 12/01/21 13:01 Pulse Rate 95 12/01/21 13:01 Respiratory Rate 16 12/01/21 13:01 Blood Pressure 143/101 H 12/01/21 13:01 Pulse Oximetry 99 12/01/21 13:01 Oxygen Delivery Room Air 12/01/21 13:01 MDM - Abdominal Pain MDM Narrative Medical decision making narrative: 46-year-old male pres
[2021-12-01] MEDS: SODIUM CHLORIDE 0.9% IV 1,000 ML 999 ML IV CONT (14:54)
[2021-12-01] MEDS: MORPHINE SULFATE (*CRX) 4 MG/ML INJ IV PUSH (14:57)
[2021-12-01] MEDS: ONDANSETRON INJ 4 MG/2 ML VIAL IV PUSH (14:57)
== END 2021-12-01 16:13 | disposition home or self-care (01) ==
PROVIDERS: Emergency Medicine; Emergency Provider Nurse Practitioner Family; PCP Internal Medicine
DX: K29.80 Duodenitis without bleeding (principal); B96.81 Helicobacter pylori [H. pylori] as the cause of diseases classified elsewhere; I10 Essential (primary) hypertension; E78.5 Hyperlipidemia, unspecified; K21.9 Gastro-esophageal reflux disease without esophagitis; E66.9 Obesity, unspecified; Z68.30 Body mass index [BMI] 30.0-30.9, adult; Z87.891 Personal history of nicotine dependence; E27.8 Other specified disorders of adrenal gland
CPT/HCPCS: 36415; 74177; 80053; 81001; 83690; 85025; 96361; 96374; 96375; 99284; J2270; J2405; J7030; Q9967

== ENCOUNTER 2021-12-02 04:09 | Inpatient (IN) | payer BC, SELFPAY ==
[2021-12-02] VITALS (9 sets, daily range): BP systolic 123–155; BP diastolic 74–96; PULSE 56–100; RESP 16–20; TEMP 36.2–36.6; O2SAT 97–100; BMI 31.8
--- NOTE | ~2021-12-02 | CT_ITS ---
EXAMINATION: CT abdomen pelvis w con DATE: 12/02/2021 08:32 INDICATION: Mid to right upper quadrant abdominal pain. TECHNIQUE: Computed tomography (CT) of the abdomen and pelvis was performed with 100 mL Omnipaque 300 intravenous contrast. Automated exposure control and iterative reconstruction technique were employe d. The dose-length product was 661.79 mGy-cm. COMPARISON: CT abdomen and pelvis 12/01/2021, 11/20/2018 FINDINGS: The visualized portions of the lung bases demonstrate minimal atelectasis. No pleural effus ion. The heart size is normal. No pericardial effusion. The liver, gallbladder, and spleen are normal . There is mild fat stranding adjacent to the head of the pancreas, consistent with acute pancreatiti s. There is a 1.5 cm mass in right adrenal gland. There is a 2.1 cm mass in left adrenal gland. These findings are stable from 11/20/2018, consistent with adenomas. There are cysts in the kidneys measurin g up to 4 mm on the left. There is a small area of focal volume loss of left kidney. There is a left inguinal hernia containing fat. There are no dilated loops of bowel. The appendix is normal. There ar e no pathologically enlarged lymph nodes. There is no free intraperitoneal fluid. There is mild lumba r spondylosis. IMPRESSION: 1. Mild findings of acute interstitial pancreatitis. Reviewed, dictated and finalized at location A.
--- NOTE | ~2021-12-02 | US_ITS ---
US right upper quadrant INDICATION: Pancreatitis PROCEDURE: Realtime right upper abdominal ultrasound. COMPARISON: No prior studies for comparison. FINDINGS: The pancreas is normal without focal mass or pancreatic ductal dilation. Liver echotexture is increased, consistent with fatty infiltration. There is normal directional flow in the portal ve in. The gallbladder is normal without stones, gallbladder wall thickening or pericholecystic fluid. Comm on bile duct measures 4 mm. No sonographic Ruiz's sign. IMPRESSION: 1: Hepatic steatosis. Reviewed, dictated and finalized at location A. IMPRESSION: 1: Hepatic steatosis.
[2021-12-02 04:52] LABS: Basophils Percent Auto 0.3 % (0.2-1.2); Eosinophils Absolute Auto 0.2 K/mm3 (0-0.3); Eosinophils Percent Auto 1.1 % (0-4.4); Hemoglobin 15.6 g/dL (14.0-18.0); Immature Granulocyte Absolute 0.05 K/mm3 (0.00-0.031); Immature Granulocyte Percent A 0.3 % (0-0.5); Lymphocytes Absolute Auto 3.22 K/mm3 (0.9-3.2); Lymphocytes Percent Auto 22.4 % (18.3-44.2); Mean Corpuscular HGB Conc 33.9 g/dl (32-36); Mean Corpuscular Hemoglobin 30.2 pg (26-34); Mean Corpuscular Volume 89.1 fl (80-100); Mean Platelet Volume 9.6 fl (7.4-10.4); Monocytes Absolute Auto 1.1 K/mm3 (0.1-0.6); Monocytes Percent Auto 7.6 % (2.6-8.5); Neutrophils Absolute Auto 9.8 K/mm3 (1.3-6.7); Neutrophils Percent Auto 68.3 % (45.5-73.1); Platelet Count Result 288 k/mm3 (150-375); Red Blood Count 5.16 M/mm3 (4.6-6.20); Red Cell Distribution Width 12.5 % (11.5-14.5); White Blood Count 14.4 K/mm3 (4.5-10.0)
[2021-12-02 05:03] LABS: Alanine Aminotransferase 30 U/L (6-50); Albumin Level 4.5 g/dL (3.5-5.1); Alkaline Phosphatase 68 U/L (38-126); Anion Gap 5 mmol/L (8-16); Aspartate Amino Transferase 24 U/L (17-59); Bilirubin,Total 0.4 mg/dL (0.2-1.3); Blood Urea Nitrogen 9 mg/dL (9-20); Calcium 9.1 mg/dL (8.4-10.2); Carbon Dioxide 28 mmol/L (22-30); Chloride 105 mmol/L (98-107); Estimated CRCL calculation 128 ml/min; Estimated Glomerular Filt Rate > 60; Glucose 129 mg/dL (65-110); Lipase 222 U/L (23-300); Potassium 4.2 mmol/L (3.4-5.0); Sodium 138 mmol/L (137-145)
--- NOTE | 2021-12-02 07:36 | ED.ABDPAIN ---
HPI - Abdominal Pain General Chief Complaint: Abdominal Pain Stated Complaint: abd pain Time Seen by Provider: 12/02/21 07:33 Source: patient and RN notes reviewed Mode of arrival: ambulatory Limitations: no limitations History of Present Illness HPI narrative: Patient is 46 years old white male drove himself to the emergency room because of diffuse abdominal pain radiating to the right upper quadrant became unable to sleep all night long. He denies any vomiting, diarrhea, constipation, fever or chills. Patient was seen in our emergency room yesterday and was discharged with a diagnosis of possible duodenitis. Patient is telling me that he was discharged on Pylera and is unsure cannot pay for it Patient quit drinking alcohol 3 years ago, stating that he had history of possible pancreatitis years ago and work-up showed no specific diagnosis at that time Related Data Allergies Allergy/AdvReac Type Severity Reaction Status Date / Time No Known Allergies Allergy Verified 12/02/21 04:36 Review of Systems Review of Systems: All systems reviewed & are unremarkable except as noted in HPI and below PMFSH Past Medical History Medical History Alcohol-induced acute pancreatitis without infection or necrosis Elevated ALT measurement Elevated TSH Erectile dysfunction Generalized anxiety disorder GERD (gastroesophageal reflux disease) Hepatic steatosis HTN (hypertension) Hyperlipidemia Lumbar radiculopathy Obesity Other chronic pain Recurrent nephrolithiasis Smoker Spinal stenosis of lumbar region Tachycardia Surgical History Surgical History Status post cystoscopy Family History Family History Father Diabetes mellitus Hypertension Grandparent Diabetes mellitus Hypertension Social History Social History Social History: 1 PPD x 25 years Smoking packs per day: 1 Smoking cigarettes per day: 20.0 Years smoked: 25 Smoking pack-years: 25.00 Smoking status: Current every day smoker Tobacco type: cigarettes Second hand tobacco smoke exposure: No Smoking end date: 08/21/21 Alcohol intake: never Substance use: never Substance use type: does not use Spiritual care concerns: No Exam Narrative: General appearance: Well-developed, well-nourished Skin: Normal color Head: Normocephalic, nontraumatic Eyes: Clear conjunctiva ENT: Oropharynx normal, ears normal, nose normal Neck: Supple, nontender Chest and respiratory: Airway patent, no respiratory distress, no accessory muscle use Heart: Regular rate/rhythm Abdomen: Soft, diffuse tenderness across mid abdomen and right upper quadrant, negative Ruiz sign, no organomegaly, quiet bowel sounds Vascular: Normal peripheral pulses, normal capillary refill. Musculoskeletal: Normal range of motion, nontender back Neurologic: Alert and oriented ?3, PERSONAL VEHICLE ADVISOR is normal as tested, no gross motor deficit Course Consultations Consultation #1: DR JUAREZ Vital Signs Vital signs: Vital Signs Temperature 36.2 C L 12/02/21 04:36 Pulse Rate 100 12/02/21 04:36 Respiratory Rate 20 12/02/21 04:36 Blood Pressure 140/90 12/02/21 04:36 Pulse Oximetry 97 12/02/21 04:36 Oxygen Delivery Room Air 12/02/21 04:36 Temperature 36.2 C L 12/02/21 04:36 Pulse Rate 82 12/02/21 09:10 Respiratory Rate 16 12/02/21 09:10 Blood Pressure 123/86 12/02/21 09:10 Pulse Oximetry 97 12/02/21 09:10 Oxygen Delivery Room Air 12/02/21 04:36 MDM - Abdominal Pain La
[2021-12-02] MEDS: BELLADONNA ALK/PHENOB ELIX 10 ML, MAG HYDROX/ALUMINUM HYD/SIMETH 30 ML, LIDOCAINE HCL 2... PO (07:43)
[2021-12-02] MEDS: ONDANSETRON INJ 4 MG/2 ML VIAL IV PUSH (09:16)
[2021-12-02] MEDS: HYDROmorphone HCL INJ (*CRX) 1 MG/ML SYR 0.5 MG IV PUSH ×4 (09:16→22:50)
[2021-12-02] MEDS: SODIUM CHLORIDE 0.9% IV 1,000 ML 999 ML IV CONT (09:16)
[2021-12-02 10:12] LABS: SARS-CoV-2 RNA PCR Negative
[2021-12-02] MEDS: SODIUM CHLORIDE 0.9% IV 1,000 ML 250 ML IV CONT ×4 (10:16→21:35)
--- NOTE | 2021-12-02 10:59 | ADMGEN ---
This patient, Jose Jesus, was admitted to [facility] Surg Room 309-01. Patient/family oriented to hospital policies and general routines including ID bracelet, bed and alarms, visiting hours, pain management, procedures, bathroom and other care routines, personal items, smoking policy, room service/diet, and visiting hours. Information on how to activate the Rapid Response Team has been discussed. Patient/Family are encouraged to report perceived risks to care and to ask questions if they do not understand what they are told or what they should do.
--- NOTE | 2021-12-02 14:03 | PM.IMHP ---
H&P: HPI History of Present Illness Date/Time: 12/02/21 14:03 Chief Complaint: Abdominal pain Narrative: Patient is a 38-year-old male with a past medical history pancreatitis, GERD, hypertension, hyperlipidemia, kidney stones who presented to the ED with abdominal pain. Patient stated that he was having abdominal pain for the last 4 days. He stated that Tuesday a got worse and he had to call off work and yesterday he could only work 5 hours. Patient came to the ED on 12/01/21 for complaints right upper quadrant pain. Today patient states that his pain is still about a 6. He denies any shortness of breath, nausea, vomiting, diarrhea, constipation. Patient did state that his pain has been exacerbated by eating. It appears that he was taking some Pepto-Bismol for pain relief however did not help. Patient also stated that he has been very weak, tired and he has been waking up drenched in sweat. Patient also stated that he has been having some chest pain which has been sternal. He stated that the pain did not migrate order move anywhere. He denies any urinary issues or abnormal swelling in the bilateral lower extremities. Patient was also talking about his chronic back pain which he stated has been there for a while. CT of the abdomen showed mild findings of acute interstitial pancreatitis. Lipase was elevated yesterday at 382 is currently 222 today. Patient denies drinking stated that he quit about 3 years ago. However he does still does smoke. Patient is being admitted to the hospital service as inpatient Review of Systems Review of Systems: All systems reviewed & are unremarkable except as noted in HPI and below PMFSH Past Medical History Medical History Acute prostatitis Alcohol-induced acute pancreatitis without infection or necrosis Erectile dysfunction Generalized anxiety disorder GERD (gastroesophageal reflux disease) Hepatic steatosis HTN (hypertension) Hyperlipidemia Kidney stones Lumbar radiculopathy Obesity Spinal stenosis of lumbar region Tachycardia Surgical History Surgical History Status post cystoscopy Family History Family History Father Diabetes mellitus Hypertension Grandparent Diabetes mellitus Hypertension Social History Social History (Updated 12/02/21 @ 14:13 by CHELSIE Brown) Social History: Patient currently this is his girlfriend Ludivina Driscoll. Patient stated that she will be his surrogate if he is unable to make his own decisions. He also denies having kids however he does have 2 dogs. Patient wishes to be a full code at this time. 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[employer] Gender identity (if verbalized by the patient): Male Sexual Orientation (if Verbalized by the Patient): Straight or Heterosexual Spiritual care concerns: No Agree to blood products: Yes Meds Home Medications and Allergies Home Medications Medication Instructions Recorded Confirmed Type lisinopril 10 mg tablet 10 mg PO DAILY #90 tabs 06/01/21 12/02/21 Rx levofloxacin 500 mg tablet 500 mg PO DAILY #10 tabs 09/01/21 12/02/21 Rx escitalopram oxalate 10 mg tablet 10 mg PO DAILY #90 tabs 09/25/21 12/02/21 Rx (Lexapro) atorvastatin 10 mg tablet 10 mg DAILY 12/02/21 12/02/21 History om
--- NOTE | 2021-12-02 14:06 | ECG_ITS ---
Measurements Intervals [place] Rate: 63 P: 50 NM: 140 QRS: 63 QRSD: 84 T: 61 QT: 403 QTc: 415 Interpretive Statements SINUS RHYTHM NORMAL ECG Electronically Signed On 12-02-2021 14:58:17 CDT by Hao Anne D.O.
[2021-12-02] MEDS: lisinopriL 10 MG TABLET PO (14:38)
[2021-12-02] MEDS: PANTOPRAZOLE 40 MG TABLET PO (14:38)
[2021-12-02] MEDS: ESCITALOPRAM OXALATE 10 MG TABLET PO (14:38)
[2021-12-02] MEDS: ATORVASTATIN 10 MG TABLET PO (14:38)
[2021-12-02 14:46] LABS: Troponin I < 0.012 ng/mL (0.000-0.034)
--- NOTE | 2021-12-02 14:55 | WPDGICN ---
Assessment and Plan Assessment and plan (1) Acute pancreatitis: Code(s): K85.90 - Acute pancreatitis without necrosis or infection, unspecified Status: Acute Assessment and Plan: Acute pancreatitis evident by CT scan appears mild on imaging, not evident on scan yesterday raising the question of how realistic this is. Symptoms certainly appear to correlate with pancreatitis. Plan for NPO status. Serum lipid level will be obtained to evaluate for potential contributing etiology to pancreatitis. Patient's distant history of alcohol intake certainly is also suspicious for etiology. Plan is for NPO with pain control and gradually advanced to low-fat diet as tolerated subsequently. (2) Alcohol abuse: Code(s): F10.10 - Alcohol abuse, uncomplicated Status: Acute Assessment and Plan: Patient has a distant history of alcohol abuse currently avoiding alcohol. Would continue to recommend alcohol avoidance. GI Consult Note Consult date/time: 12/02/21 14:55 Reason for consult: Acute pancreatitis. HPI: Jose Jesus is a 46 year old male I am asked to see because of abnormal CT scan consistent with pancreatitis. Patient reports history of abdominal pain that began last week. It intensified over the weekend particularly since Tuesday and Tuesday. pain became so intense yesterday presented to the emergency room last night. He went home but returned today because of ongoing abdominal pain. He denies any vomiting. He has some nausea. States pain is across the upper abdomen but also hurts in his back. Patient states he may have had pancreatitis many years ago. He typically would drink alcohol regularly routinely. Became quite sick in 2002 years ago. Patient since has decreased his alcohol intake dramatically and does not drink except on rare occasions. His family history is noncontributory. He has never been told he had gallbladder disease. Patient denies a fever. CT scan in the ER yesterday suggested duodenitis. Today it suggest mild pancreatitis. Serum lipase level only modestly elevated today slightly above normal range. Review of Systems Review of Systems: Review of systems is noncontributory. [facility] Past Medical History Medical History Acute prostatitis Alcohol-induced acute pancreatitis without infection or necrosis Erectile dysfunction Generalized anxiety disorder GERD (gastroesophageal reflux disease) Hepatic steatosis HTN (hypertension) Hyperlipidemia Kidney stones Lumbar radiculopathy Obesity Spinal stenosis of lumbar region Tachycardia Surgical History Surgical History Status post cystoscopy Family History Family History Father Diabetes mellitus Hypertension Grandparent Diabetes mellitus Hypertension Social History Social History (Updated 12/02/21 @ 14:13 by CHELSIE Brown) Social History: Patient currently this is his girlfriend Luidvina Driscoll. Patient stated that she will be his surrogate if he is unable to make his own decisions. He also denies having kids however he does have 2 dogs. Patient wishes to be a full code at this time. 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
[2021-12-02 15:17] LABS: Cholesterol 143 mg/dL (0-200); HDL Direct 25 mg/dL; Triglycerides 149 mg/dL (<150)
[2021-12-02 15:28] LABS: LDL Cholesterol Direct 82 mg/dL
[2021-12-02] MEDS: NICOTINE (*PBKC) 21 MG PATCH 1 PATCH TRANSDERM (16:55)
[2021-12-02 17:24] LABS: Troponin I < 0.012 ng/mL (0.000-0.034)
--- NOTE | 2021-12-02 22:42 | PC.NURSE ---
12/02/21 2237 per esteban acuña to give dilaudid an hour early.
[2021-12-03] MEDS: SODIUM CHLORIDE 0.9% IV 1,000 ML 250 ML IV CONT ×5 (01:26→17:28)
[2021-12-03] MEDS: HYDROmorphone HCL INJ (*CRX) 1 MG/ML SYR 0.5 MG IV PUSH ×2 (02:56→09:18)
[2021-12-03 05:53] VITALS: BP 110/84; PULSE 79; RESP 20; TEMP 36.7; O2SAT 98
[2021-12-03 06:51] LABS: Basophils Percent Auto 0.2 % (0.2-1.2); Eosinophils Absolute Auto 0.1 K/mm3 (0-0.3); Eosinophils Percent Auto 1.3 % (0-4.4); Hematocrit 38.9 % (42.0-52.0); Hemoglobin 13.8 g/dL (14.0-18.0); Immature Granulocyte Absolute 0.03 K/mm3 (0.00-0.031); Immature Granulocyte Percent A 0.3 % (0-0.5); Lymphocytes Absolute Auto 2.47 K/mm3 (0.9-3.2); Lymphocytes Percent Auto 25.8 % (18.3-44.2); Mean Corpuscular HGB Conc 35.5 g/dl (32-36); Mean Corpuscular Hemoglobin 30.6 pg (26-34); Mean Corpuscular Volume 86.3 fl (80-100); Mean Platelet Volume 9.7 fl (7.4-10.4); Monocytes Absolute Auto 0.7 K/mm3 (0.1-0.6); Monocytes Percent Auto 7.2 % (2.6-8.5); Neutrophils Absolute Auto 6.3 K/mm3 (1.3-6.7); Neutrophils Percent Auto 65.2 % (45.5-73.1); Platelet Count Result 239 k/mm3 (150-375); Red Blood Count 4.51 M/mm3 (4.6-6.20); Red Cell Distribution Width 12.1 % (11.5-14.5); White Blood Count 9.6 K/mm3 (4.5-10.0)
[2021-12-03 07:12] LABS: Alanine Aminotransferase 26 U/L (6-50); Albumin Level 3.5 g/dL (3.5-5.1); Alkaline Phosphatase 42 U/L (38-126); Anion Gap 6 mmol/L (8-16); Aspartate Amino Transferase 29 U/L (17-59); Bilirubin,Total 0.6 mg/dL (0.2-1.3); Blood Urea Nitrogen 8 mg/dL (9-20); Calcium 7.9 mg/dL (8.4-10.2); Carbon Dioxide 23 mmol/L (22-30); Chloride 109 mmol/L (98-107); Estimated CRCL calculation 128 ml/min; Estimated Glomerular Filt Rate > 60; Glucose 87 mg/dL (65-110); Magnesium 1.8 mg/dL (1.6-2.3); Potassium 3.9 mmol/L (3.4-5.0); Sodium 138 mmol/L (137-145)
[2021-12-03 08:50] LABS: Lipase 116 U/L (23-300)
[2021-12-03] MEDS: ESCITALOPRAM OXALATE 10 MG TABLET PO (09:24)
[2021-12-03] MEDS: lisinopriL 10 MG TABLET PO (09:24)
[2021-12-03] MEDS: NICOTINE (*PBKC) 21 MG PATCH 1 PATCH TRANSDERM (09:24)
[2021-12-03] MEDS: PANTOPRAZOLE 40 MG TABLET PO (09:24)
[2021-12-03] MEDS: ATORVASTATIN 10 MG TABLET PO (09:24)
--- NOTE | 2021-12-03 10:42 | WPDGIPROGNO ---
Progress Note: A&P Assessment and Plan (1) Acute pancreatitis: Code(s): K85.90 - Acute pancreatitis without necrosis or infection, unspecified Status: Acute Assessment and Plan: Patient with presumed acute pancreatitis. Minimally elevated lipase on presentation. Minimal pancreatic inflammation suggested on CT scan. However 1 day prior to this duodenal inflammation was evident. Plan to keep on PPI therapy. Gradually advance diet. If pain persists consider EGD. (2) Alcohol abuse: Code(s): F10.10 - Alcohol abuse, uncomplicated Status: Acute Subjective Date/time seen: 12/03/21 10:42 Patient alert. Continues to take pain medications throughout the night. Pain appears rather diffuse and poorly localized when present. Review of Systems Review of Systems: Review of systems noncontributory. Exam Narrative: Physical exam reveals patient be alert. Vital signs stable. He is afebrile and anicteric. Lungs are clear. Heart without murmur. Abdomen bowel sounds present soft he notices a discomfort in the mid upper abdomen. Objective Data Vital Signs Vital Signs: Vital Signs - 24 hr 12/02/21 10:51 12/02/21 11:00 12/02/21 14:02 Temperature 97.6 F Pulse Rate 78 56 L Respiratory Rate 18 16 Blood Pressure 124/87 146/74 H Pulse Oximetry 99 100 98 Oxygen Delivery Room Air 12/02/21 14:00 12/02/21 19:40 12/02/21 21:29 Temperature 97.9 F 97.6 F Pulse Rate 58 L 65 Respiratory Rate 18 18 Blood Pressure 124/95 H 144/93 H Pulse Oximetry 99 98 Oxygen Delivery Room Air 12/03/21 05:53 Temperature 98.1 F Pulse Rate 79 Respiratory Rate 20 Blood Pressure 110/84 Pulse Oximetry 98 Oxygen Delivery Intake/Output Intake/Output: Intake & Output 11/30/21 12/01/21 12/02/21 12/03/21 23:59 23:59 23:59 23:59 Intake Total 4000 3000 Output Total 400 500 Balance 3600 2500 Meds/Results Medications: Active Medications Generic Name Dose Route Start Last Admin Trade Name Freq PRN Reason Stop Dose Admin Atorvastatin Calcium 10 mg 12/03/21 09:00 12/03/21 09:24 Atorvastatin 10 Mg Tablet PO 10 mg DAILY ANTONIO Administration Escitalopram Oxalate 10 mg 12/02/21 14:30 12/03/21 09:24 Escitalopram Oxalate 10 Mg Tablet PO 10 mg DAILY ANTONIO Administration Hydromorphone HCl 0.5 mg 12/02/21 09:23 12/03/21 09:18 Hydromorphone Hcl Inj (*Crx) 1 Mg/Ml Syr IV PUSH 0.5 mg Q4H PRN Administration Pain Rated 7-10 Sodium Chloride 1,000 mls @ 250 mls/hr 12/02/21 09:25 12/03/21 09:23 Normal Saline Iv IV CONT 250 mls/hr .Q4H ANTONIO Administration Lisinopril 10 mg 12/02/21 14:30 12/03/21 09:24 Lisinopril 10 Mg Tablet PO 10 mg DAILY ANTONIO Administration Nicotine 1 patch 12/02/21 14:45 12/03/21 09:24 Nicotine (*Pbkc) 21 Mg Patch TRANSDERM 1 patch QAM ANTONIO Administration Nicotine Polacrilex 4 mg 12/02/21 14:44 Nicotine (*Pbkc) 4 Mg Gum PO PRN PRN Nicotine Cravings Ondansetron HCl 4 mg 12/02/21 09:23 Ondansetron Inj 4 Mg/2 Ml Vial IV PUSH Q4H PRN Nausea Pantoprazole Sodium 40 mg 12/02/21 14:30 12/03/21 09:24 Pantoprazole 40 Mg Tablet PO 01/02/22 14:29 40 mg DAILY ANTONIO Administration Radiology Results: ITS Impressions Abdomen/Pelvis CT 12/02/21 08:33 IMPRESSION: 1. Mild findings of acute interstitial pancreatitis. Upper Quadrant Ultrasound 12/02/21 15:38 IMPRESSION: 1: Hepatic steatosis. Labs Labs: Laboratory Results - last 24 hr 12/02/21 12/02/21 12/02/21 14:12 14:15 16:51 WBC RBC Hgb Hct MCV MCH MCHC RDW Plt Count MPV Immature Gran % (Auto) Neut % (Auto) Lymph % (Auto) Hayes % (Auto) Eos % (Auto) Baso % (Auto) Lymph # (Auto) Hayes # (Auto) Eos # (Auto) Baso # (Auto) Abs Immat Gran (auto) Absolute Neuts (auto) Absolute Nucleated RBC Nucleated RB
--- NOTE | 2021-12-03 11:15 | PM.IMPN ---
Progress Note: A&P Assessment and Plan (1) Acute pancreatitis: Code(s): K85.90 - Acute pancreatitis without necrosis or infection, unspecified Status: Acute Assessment and Plan: Patient came in yesterday and lipase was elevated yesterday at 382 Currently lipase is 116 CT of the abdomen and pelvis showed fat stranding around the head of the pancreas indicating acute pancreatitis Right upper quadrant ultrasound fatty liver Pain medication on board IV fluids ADAT slowly GI on consult thank you for your help Trend lipase Adjust therapy as indicated (2) HTN (hypertension): Qualifiers: Hypertension type: essential hypertension Qualified Code(s): I10 - Essential (primary) hypertension Code(s): I10 - Essential (primary) hypertension Status: Acute Assessment and Plan: Blood pressure stable at 110/84 Continue lisinopril 10 mg daily Trend blood pressure Adjust therapy as indicated (3) Hyperlipidemia: Qualifiers: Hyperlipidemia type: mixed hyperlipidemia Qualified Code(s): E78.2 - Mixed hyperlipidemia Code(s): E78.5 - Hyperlipidemia, unspecified Status: Acute Assessment and Plan: Continue home atorvastatin 10 mg daily LFT stable at this time (4) Lumbar radiculopathy: Code(s): M54.16 - Radiculopathy, lumbar region Status: Acute Assessment and Plan: Patient does have chronic back pain He states that he takes tramadol 50 at home Currently on Dilaudid Adjust therapy to pain score (5) Tobacco dependence: Code(s): F17.200 - Nicotine dependence, unspecified, uncomplicated Status: Acute Assessment and Plan: Nicotine patch and gum ordered Education given for 8 minutes Time Spent With Patient Time with patient: Greater than 35 minutes Subjective Date/time seen: 12/03/21 11:15 Interval history: 12/03/21 1115 Patient stated that he was feeling little better today. He did have a rough night however he stated that the pain was very significant he was unable to get any rest. He did state that around 3:00 a.m. he was able to get another dose of pain medicine and he was able to get a couple hours of sleep which he does feel better this morning. He was able to drink a white soda and has been tolerating it okay. He denies any nausea, vomiting, diarrhea, constipation, weakness, fatigue, chest pain, shortness of breath. 12/02/21? 14:03 Patient is a 38-year-old male with a past medical history pancreatitis, GERD, hypertension, hyperlipidemia, kidney stones who presented to the ED with abdominal pain.? Patient stated that he was having abdominal pain for the last 4 days.? He stated that Tuesday a got worse and he had to call off work and yesterday he could only work 5 hours.? Patient came to the ED on 12/01/21 for complaints right upper quadrant pain.? Today patient states that his pain is still about a 6.? He denies any shortness of breath, nausea, vomiting, diarrhea, constipation.? Patient did state that his pain has been exacerbated by eating.? It appears that he was taking some Pepto-Bismol for pain relief however did not help.? Patient also stated that he has been very weak, tired and he has been waking up drenched in sweat.? Patient also stated that he has been having some chest pain which has been sternal.? He stated that the pain did not migrate order move anywhere.? He denies any urinary issues or abnormal swelling in the bilateral lower extremities.? Patient was also talking about his chronic back pain which he stated has been there for a while.? CT of the abdomen showed mild findings of acute interstitial pancreatitis.? Lipase was elevated yesterday at 382 is currently 222 today.? Patient denies drinking stated that he quit about 3 years ago.? However he does still does smoke. Review of Systems Review of Systems: All systems reviewed & are unremarkable except as
[2021-12-03] MEDS: traMADol HCL (*CRX) 50 MG TABLET PO ×2 (13:13→20:49)
[2021-12-03 13:46] VITALS: BP 122/93; PULSE 82; RESP 18; TEMP 35.9; O2SAT 99
[2021-12-03 20:00] VITALS: PULSE 77; RESP 18; O2SAT 94
[2021-12-03 21:33] VITALS: BP 158/86; PULSE 77; RESP 18; TEMP 36.4; O2SAT 94
[2021-12-04] MEDS: SODIUM CHLORIDE 0.9% IV 1,000 ML 250 ML IV CONT ×3 (00:19→09:32)
[2021-12-04 06:00] VITALS: BP 132/90; PULSE 68; RESP 18; TEMP 36.3; O2SAT 99
[2021-12-04 06:38] LABS: Basophils Percent Auto 0.3 % (0.2-1.2); Eosinophils Absolute Auto 0.2 K/mm3 (0-0.3); Eosinophils Percent Auto 1.9 % (0-4.4); Hematocrit 37.6 % (42.0-52.0); Hemoglobin 13.4 g/dL (14.0-18.0); Immature Granulocyte Absolute 0.02 K/mm3 (0.00-0.031); Immature Granulocyte Percent A 0.2 % (0-0.5); Lymphocytes Absolute Auto 2.69 K/mm3 (0.9-3.2); Lymphocytes Percent Auto 31.3 % (18.3-44.2); Mean Corpuscular HGB Conc 35.6 g/dl (32-36); Mean Corpuscular Hemoglobin 30.4 pg (26-34); Mean Corpuscular Volume 85.3 fl (80-100); Mean Platelet Volume 9.5 fl (7.4-10.4); Monocytes Absolute Auto 0.7 K/mm3 (0.1-0.6); Monocytes Percent Auto 7.6 % (2.6-8.5); Neutrophils Absolute Auto 5.1 K/mm3 (1.3-6.7); Neutrophils Percent Auto 58.7 % (45.5-73.1); Platelet Count Result 243 k/mm3 (150-375); Red Blood Count 4.41 M/mm3 (4.6-6.20); Red Cell Distribution Width 12.2 % (11.5-14.5); White Blood Count 8.6 K/mm3 (4.5-10.0)
[2021-12-04 06:52] LABS: Alanine Aminotransferase 26 U/L (6-50); Albumin Level 3.3 g/dL (3.5-5.1); Alkaline Phosphatase 51 U/L (38-126); Anion Gap 6 mmol/L (8-16); Aspartate Amino Transferase 24 U/L (17-59); Bilirubin,Total 0.4 mg/dL (0.2-1.3); Blood Urea Nitrogen 6 mg/dL (9-20); Calcium 8.2 mg/dL (8.4-10.2); Carbon Dioxide 23 mmol/L (22-30); Chloride 111 mmol/L (98-107); Estimated CRCL calculation 128 ml/min; Estimated Glomerular Filt Rate > 60; Glucose 88 mg/dL (65-110); Lipase 101 U/L (23-300); Potassium 3.8 mmol/L (3.4-5.0); Sodium 140 mmol/L (137-145)
--- NOTE | 2021-12-04 07:39 | WPDGIPROGNO ---
Progress Note: A&P Assessment and Plan (1) Acute pancreatitis: Code(s): K85.90 - Acute pancreatitis without necrosis or infection, unspecified Status: Acute Assessment and Plan: Patient with resolved pancreatitis. Denies abdominal pain. Tolerating diet. Plan to advance to a low-fat diet. Discharge today would suggest keeping patient on pantoprazole 40mg p.o. daily for month or 2. Patient should continue to abstain from alcohol has this likely contributes to his symptoms. (2) Alcohol abuse: Code(s): F10.10 - Alcohol abuse, uncomplicated Status: Acute Assessment and Plan: Station with a history of alcohol abuse. Has greatly diminished alcohol intake over last several years would recommend alcohol abstinence. Subjective Date/time seen: 12/04/21 07:39 Patient alert comfortable this morning. Tolerating diet with no difficulty. Denies any abdominal pain whatsoever today. Review of Systems Review of Systems: Review of systems noncontributory. Exam Narrative: Physical exam reveals patient be alert. Vital signs stable. HEENT exam is unremarkable. Patient is anicteric. Lungs are clear to auscultation and percussion. Heart is without murmur or extra sounds. Abdominal exam bowel sounds present soft nontender with no organomegaly. Objective Data Vital Signs Vital Signs: Vital Signs - 24 hr 12/03/21 13:46 12/03/21 21:33 12/03/21 20:00 Temperature 96.7 F L 97.6 F Pulse Rate 82 77 77 Respiratory Rate 18 18 18 Blood Pressure 122/93 H 158/86 H Pulse Oximetry 99 94 94 Oxygen Delivery Room Air 12/04/21 06:00 Temperature 97.3 F L Pulse Rate 68 Respiratory Rate 18 Blood Pressure 132/90 Pulse Oximetry 99 Oxygen Delivery Intake/Output Intake/Output: Intake & Output 12/01/21 12/02/21 12/03/21 12/04/21 23:59 23:59 23:59 23:59 Intake Total 4000 6950 1200 Output Total 400 500 Balance 3600 6450 1200 Meds/Results Medications: Active Medications Generic Name Dose Route Start Last Admin Trade Name Freq PRN Reason Stop Dose Admin Atorvastatin Calcium 10 mg 12/03/21 09:00 12/03/21 09:24 Atorvastatin 10 Mg Tablet PO 10 mg DAILY ANTONIO Administration Escitalopram Oxalate 10 mg 12/02/21 14:30 12/03/21 09:24 Escitalopram Oxalate 10 Mg Tablet PO 10 mg DAILY ANTONIO Administration Hydromorphone HCl 0.5 mg 12/02/21 09:23 12/03/21 09:18 Hydromorphone Hcl Inj (*Crx) 1 Mg/Ml Syr IV PUSH 0.5 mg Q4H PRN Administration Pain Rated 7-10 Sodium Chloride 1,000 mls @ 250 mls/hr 12/02/21 09:25 12/04/21 05:42 Normal Saline Iv IV CONT 250 mls/hr .Q4H ANTONIO Administration Lisinopril 10 mg 12/02/21 14:30 12/03/21 09:24 Lisinopril 10 Mg Tablet PO 10 mg DAILY ANTONIO Administration Nicotine 1 patch 12/02/21 14:45 12/03/21 09:24 Nicotine (*Pbkc) 21 Mg Patch TRANSDERM 1 patch QAM ANTONIO Administration Nicotine Polacrilex 4 mg 12/02/21 14:44 Nicotine (*Pbkc) 4 Mg Gum PO PRN PRN Nicotine Cravings Ondansetron HCl 4 mg 12/02/21 09:23 Ondansetron Inj 4 Mg/2 Ml Vial IV PUSH Q4H PRN Nausea Pantoprazole Sodium 40 mg 12/02/21 14:30 12/03/21 09:24 Pantoprazole 40 Mg Tablet PO 01/02/22 14:29 40 mg DAILY ANTONIO Administration Tramadol HCl 50 mg 12/03/21 11:39 12/03/21 20:49 Tramadol Hcl (*Crx) 50 Mg Tablet PO 50 mg Q4H PRN Administration Pain Rated 4-6 Radiology Results: ITS Impressions Abdomen/Pelvis CT 12/02/21 08:33 IMPRESSION: 1. Mild findings of acute interstitial pancreatitis. Upper Quadrant Ultrasound 12/02/21 15:38 IMPRESSION: 1: Hepatic steatosis. Labs Labs: Laboratory Results - last 24 hr 12/03/21 12/04/21 12/04/21 06:09 06:08 06:08 WBC 8.6 RBC 4.41 L Hgb 13.4 L Hct 37.6 L MCV 85.3 MCH 30.4 MCHC 35.6 RDW 12.2 Plt Count 243 MPV 9.5 Immature Gran % (Auto) 0.2 Neut % (
[2021-12-04] MEDS: lisinopriL 10 MG TABLET PO (09:31)
[2021-12-04] MEDS: ESCITALOPRAM OXALATE 10 MG TABLET PO (09:31)
[2021-12-04] MEDS: PANTOPRAZOLE 40 MG TABLET PO (09:31)
[2021-12-04] MEDS: NICOTINE (*PBKC) 21 MG PATCH 1 PATCH TRANSDERM (09:32)
[2021-12-04] MEDS: ATORVASTATIN 10 MG TABLET PO (09:32)
[2021-12-04] MEDS: traMADol HCL (*CRX) 50 MG TABLET PO (09:37)
--- NOTE | 2021-12-04 10:30 | PM.DS ---
DS: Admitting Diagnosis Discharge Date 12/04/21 1030 Admitting Diagnosis Acute pancreatitis DS: Discharge Diagnosis Discharge Diagnosis (1) Acute pancreatitis: Code(s): K85.90 - Acute pancreatitis without necrosis or infection, unspecified Status: Acute Assessment and Plan: Patient came in yesterday and lipase was elevated yesterday at 382 Currently lipase is 116 CT of the abdomen and pelvis showed fat stranding around the head of the pancreas indicating acute pancreatitis Right upper quadrant ultrasound fatty liver Pain medication on board IV fluids ADAT slowly GI on consult thank you for your help Trend lipase Adjust therapy as indicated (2) HTN (hypertension): Qualifiers: Hypertension type: essential hypertension Qualified Code(s): I10 - Essential (primary) hypertension Code(s): I10 - Essential (primary) hypertension Status: Acute Assessment and Plan: Blood pressure stable at 110/84 Continue lisinopril 10 mg daily Trend blood pressure Adjust therapy as indicated (3) Hyperlipidemia: Qualifiers: Hyperlipidemia type: mixed hyperlipidemia Qualified Code(s): E78.2 - Mixed hyperlipidemia Code(s): E78.5 - Hyperlipidemia, unspecified Status: Acute Assessment and Plan: Continue home atorvastatin 10 mg daily LFT stable at this time (4) Lumbar radiculopathy: Code(s): M54.16 - Radiculopathy, lumbar region Status: Acute Assessment and Plan: Patient does have chronic back pain He states that he takes tramadol 50 at home Currently on Dilaudid Adjust therapy to pain score (5) Tobacco dependence: Code(s): F17.200 - Nicotine dependence, unspecified, uncomplicated Status: Acute Assessment and Plan: Nicotine patch and gum ordered Education given for 8 minutes DS: Summary Hospital Course Hospital Course: Patient is a 46-year-old male with past medical history pancreatitis, GERD, hypertension, hyperlipidemia, and kidney stones who presented to the ED with abdominal pain. Patient stated that his abdominal pain started Tuesday and has gotten worse progressively throughout the week. Upon arrival patient was noted to have an elevated lipase. Abdominal pain was significant. Abdominal CT did show evidence of acute pancreatitis which appeared to be resolving. Right upper quadrant ultrasound showed fatty liver. Labs have been on trend throughout the stay. Patient has been hydrated through IV fluids. Pain medications were also provided for further comfort. GI was consulted. Diet has been advanced as tolerated and patient is able to tolerate a diet at this time. Pain is minimal today. Labs and vital signs also appeared to be stable. Lipase today is. Patient denies any chest pain, shortness of breath, nausea, vomiting, diarrhea, constipation, weakness or fatigue. Counseling has been performed about smoking cessation. Education about alcohol has also been given however patient denies the use of alcohol for the last 3 years. Time spent discussing smoking cessation with patient: more than 10 minutes Status at Discharge Functional status at discharge: independent ambulation Overall status at discharge: patient is progressing back to baseline Time Spent with Patient Time attestation: Total time spent providing and/or coordinating discharge services: 38 minutes Time spent: Greater than 30 minutes Specific discharge activities: Diagnostic testing, chart review, developing a treatment plan, education, care coordination documentation, physical exam, result review Exam Const: General: cooperative, no acute distress, well developed, alert and awake Nutritional Appearance: well nourished, obese and overweight Orientation/consciousness: oriented to person, oriented to place, oriented to time and patient oriented x3 Limitations: no limitations HENMT: Head: normal t
== END 2021-12-04 12:40 | disposition home or self-care (01) | DRG 440 ==
LOC: ANHED 09:20 → ANH3MEDSUR 12:07
PROVIDERS: Emergency Medicine; Internal Medicine Gastroenterology; Admitting Provider Chiropractor; Emergency Provider Emergency Medicine; PCP Internal Medicine; Visit Provider Nurse Practitioner
DX: K85.90 Acute pancreatitis without necrosis or infection, unspecified (principal); F10.11 Alcohol abuse, in remission; I10 Essential (primary) hypertension; E78.2 Mixed hyperlipidemia; M48.061 Spinal stenosis, lumbar region without neurogenic claudication; M54.16 Radiculopathy, lumbar region; K76.0 Fatty (change of) liver, not elsewhere classified; F17.210 Nicotine dependence, cigarettes, uncomplicated; K21.9 Gastro-esophageal reflux disease without esophagitis; F41.1 Generalized anxiety disorder; E66.9 Obesity, unspecified; Z87.442 Personal history of urinary calculi; Z68.31 Body mass index [BMI] 31.0-31.9, adult
CPT/HCPCS: 36415; 74177; 76705; 80053; 80061; 83690; 83735; 84484; 85025; 93005; 96361; 96374; 96375; 99285; A9270; C9803; J0131; J1170; J2405; J7030; Q9967; U0003; U0005

== ENCOUNTER 2022-10-22 16:45 | Outpatient (CLI) | payer BC, SELFPAY ==
--- NOTE | ~2022-10-22 | XR_ITS ---
EXAMINATION: XR lumbar spine min 4V DATE: 10/22/2022 17:20 INDICATION: Back pain TECHNIQUE: Anteroposterior, lateral in neutral, flexion and extension and cone-down lateral lumbosacr al views of the lumbar spine were obtained. COMPARISON: Lumbar spine MR dated 09/20/2021 FINDINGS: Alignment is normal with normal motion with flexion and extension. Again seen is chronic likely physi ologic mild anterior wedging at T12-L2. Mild disc height loss at L3-L4 and L4-L5. There is a congenit ally small central canal with short pedicles in the mid to lower lumbar spine. Mild bilateral sacroil iac osteoarthritis. IMPRESSION: 1. Mild lumbar spondylosis with congenitally small central canal. 2. Normal alignment with normal motion with flexion and extension. Reviewed, dictated and finalized at location A.
--- NOTE | ~2022-10-22 | MR_ITS ---
EXAMINATION: MR lumbar spine wo con DATE: 10/22/2022 17:34 INDICATION: Back pain TECHNIQUE: Magnetic resonance imaging (MRI) of the lumbar spine was performed without intravenous con trast. Sequences included sagittal T2-weighted FSE, sagittal T2-weighted FS FSE, sagittal T1-weighted FSE, and axial T2-weighted FSE. COMPARISON: Lumbar spine radiograph dated 10/22/2022 and MRI dated 09/20/2021 FINDINGS: No significant change in minimal lumbar levocurvature. Sagittal alignment is normal. Again seen is li trice physiologic mild anterior wedging at T12, L1 and L2. Normal marrow signal. Mild disc disc desic cation and mild height loss at L3-L4, L4-L5 and L5-S1. 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 The conus medullaris terminates at L1-L2. There is normal signal in the caudal spinal cord. Pa ravertebral soft tissues are unremarkable. The following disc levels are specifically discussed: T12-L1: The disc does not extend beyond the endplate margin. There is mild bilateral facet joint oste oarthritis. There is no neural foraminal stenosis. There is no central canal stenosis. L1-L2: Disc is mildly bulging. There is mild to moderate bilateral facet joint osteoarthritis. There is no neural foraminal stenosis. There is no central canal stenosis. L2-L3: Disc is mildly bulging. There is severe right and moderate left facet joint osteoarthritis. Th ere is mild bilateral neural foraminal stenosis. There is mild central canal stenosis. L3-L4: Disc is mildly bulging with superimposed annular fissure and new left foraminal zone disc extr usion with disc material extending up to 4 mm cephalad to the level of the inferior endplate of L3. T here is moderate bilateral facet joint osteoarthritis. There is mild right and moderate but increased left neural foraminal stenosis. There is mild central canal stenosis. L4-L5: Disc is bulging with superimposed left foraminal zone annular fissure and small disc extrusion with disc material extending up to 4 mm cephalad to the level of the inferior endplate of L4. There is mild bilateral facet joint osteoarthritis. There is mild right and moderate left neural foraminal stenosis. There is mild central canal stenosis. L5-S1: Disc is bulging. There is mild to moderate bilateral facet joint osteoarthritis. There is mild bilateral neural foraminal stenosis. There is mild central canal stenosis. IMPRESSION: 1. Slight interval progression in mild lumbar spondylosis most notable for a new small disc extrusion resulting in increasing moderate neural foraminal stenosis on the left at L3-L4. Reviewed, dictated and finalized at location A. IMPRESSION: 1. Slight interval progression in mild lumbar spondylosis most notable for a ne w small disc extrusion resulting in increasing moderate neural foraminal stenos is on the left at L3-L4.
== END 2022-10-22 16:46 | disposition home or self-care (01) ==
PROVIDERS: PCP Internal Medicine; Visit Provider Neurological Surgery
DX: M47.816 Spondylosis without myelopathy or radiculopathy, lumbar region (principal)
CPT/HCPCS: 72110; 72148

== ENCOUNTER → 2023-05-27 09:06 | Outpatient (CLI) | payer BC, SELFPAY ==
--- NOTE | ~2023-05-27 | XR_ITS ---
Bilateral Hands Technique: Bilateral PA, oblique, and lateral views, and ball-catcher's view were obtained. Clinical History: Pain Findings: No acute fracture or dislocation is seen. Osseous alignment is anatomic. There is mild dege nerative change of the bilateral interphalangeal joints of the thumbs. Remaining joint spaces are int act. Soft tissues are unremarkable. Impression: Mild degenerative change of the interphalangeal joints of the bilateral thumbs. Reviewed, dictated and finalized at location M. SPECIALIST Impression: Mild degenerative change of the interphalangeal joints of the bilateral thumbs.
== END ==
PROVIDERS: PCP Nurse Practitioner; Visit Provider Nurse Practitioner
DX: M79.642 Pain in left hand (principal); M79.641 Pain in right hand
CPT/HCPCS: 73130

== ENCOUNTER → 2023-08-23 10:44 | Outpatient (REF) | payer BC, SELFPAY | LOC: ANHLAB 10:44 | PROVIDERS: PCP Internal Medicine; Visit Provider Plastic Surgery | DX: L57.8 Other skin changes due to chronic exposure to nonionizing radiation (principal); L72.9 Follicular cyst of the skin and subcutaneous tissue, unspecified | CPT/HCPCS: 88305 ==

== ENCOUNTER 2023-11-08 08:14 | Outpatient (CLI) | payer BC, SELFPAY ==
[2023-11-08 12:54] LABS: Basophils Percent Auto 0.2 % (0.2-1.2); Eosinophils Absolute Auto 0.2 K/mm3 (0-0.3); Eosinophils Percent Auto 1.7 % (0-4.4); Hematocrit 44.3 % (42.0-52.0); Hemoglobin 14.8 g/dL (14.0-18.0); Immature Granulocyte Absolute 0.03 K/mm3 (0.00-0.031); Immature Granulocyte Percent A 0.3 % (0-0.5); Lymphocytes Absolute Auto 1.93 K/mm3 (0.9-3.2); Lymphocytes Percent Auto 20.4 % (18.3-44.2); Mean Corpuscular HGB Conc 33.4 g/dl (32-36); Mean Corpuscular Hemoglobin 30.8 pg (26-34); Mean Corpuscular Volume 92.1 fl (80-100); Mean Platelet Volume 10.2 fl (7.4-10.4); Monocytes Absolute Auto 0.6 K/mm3 (0.1-0.6); Monocytes Percent Auto 6.6 % (2.6-8.5); Neutrophils Absolute Auto 6.7 K/mm3 (1.3-6.7); Neutrophils Percent Auto 70.8 % (45.5-73.1); Platelet Count Result 215 k/mm3 (150-375); Red Blood Count 4.81 M/mm3 (4.6-6.20); Red Cell Distribution Width 12.9 % (11.5-14.5); White Blood Count 9.5 K/mm3 (4.5-10.0)
[2023-11-08 13:11] LABS: Alanine Aminotransferase 18 U/L (6-50); Albumin Level 4.2 g/dL (3.5-5.1); Alkaline Phosphatase 51 U/L (38-126); Anion Gap 6 mmol/L (4-12); Aspartate Amino Transferase 56 U/L (17-59); Bilirubin,Total 0.4 mg/dL (0.2-1.3); Blood Urea Nitrogen 17 mg/dL (9-20); Calcium 9.2 mg/dL (8.4-10.2); Carbon Dioxide 28 mmol/L (22-30); Chloride 105 mmol/L (98-107); Cholesterol 179 mg/dL (0-200); Estimated Glomerular Filt Rate > 60; Glucose 102 mg/dL (65-110); HDL Direct 49 mg/dL; Potassium 4.5 mmol/L (3.4-5.0); Sodium 139 mmol/L (137-145); Triglycerides 123 mg/dL (<150)
[2023-11-08 13:23] LABS: LDL Cholesterol Direct 117 mg/dL
[2023-11-08 13:38] LABS: Prostate Specific Antigen 4.4 ng/mL (< OR = 4.0)
[2023-11-08 14:56] LABS: Hepatitis C Virus Antibody Negative (Negative)
== END 2023-11-08 08:15 | disposition home or self-care (01) ==
LOC: ANHGOSHLAB 08:15
PROVIDERS: PCP Internal Medicine; Visit Provider Internal Medicine
DX: Z12.5 Encounter for screening for malignant neoplasm of prostate (principal); E78.5 Hyperlipidemia, unspecified; I10 Essential (primary) hypertension; Z91.89 Other specified personal risk factors, not elsewhere classified; Z11.59 Encounter for screening for other viral diseases
CPT/HCPCS: 36415; 80053; 80061; 84153; 85025; 86803; G0103

== ENCOUNTER 2023-11-21 10:02 | Emergency (ER) | payer BC, SELFPAY ==
[2023-11-21] VITALS (14 sets, daily range): BP systolic 129–160; BP diastolic 85–93; PULSE 54–67; RESP 9–19; TEMP 36.6–36.8; O2SAT 99–100
--- NOTE | ~2023-11-21 | US_ITS ---
EXAMINATION: US scrotum doppler DATE: 11/21/2023 13:38 INDICATION: Left testicular pain. TECHNIQUE: Grayscale and Doppler ultrasound images of the testes were obtained. COMPARISON: None. FINDINGS: The right testis measures 4.5 x 1.9 x 3.4 cm. The left testis measures 3.7 x 1.7 x 3.5 cm. There is normal vascular flow to both testes. The right epididymis is normal with normal vascular moreno w. The left epididymis is normal with normal vascular flow. There is no varicocele or hydrocele. IMPRESSION: 1. Normal testes. Reviewed, dictated and finalized at location A. IMPRESSION: 1. Normal testes.
--- NOTE | ~2023-11-21 | CT_ITS ---
EXAMINATION: CT abdomen pelvis w con DATE: 11/21/2023 12:53 INDICATION: Left abdominal pain. Left back pain. TECHNIQUE: Computed tomography (CT) of the abdomen and pelvis was performed with 100 mL Omnipaque 350 intravenous contrast. Automated exposure control and iterative reconstruction technique were employe d. The dose-length product was 343.30 mGy-cm. COMPARISON: CT abdomen pelvis 12/02/2021 FINDINGS: The visualized portions of the lung bases demonstrate mild atelectasis in the left. No pleu ral effusion. The heart size is normal. No pericardial effusion. The liver, gallbladder, spleen, panc reas are normal. There is a 1.8 cm mass in right adrenal gland, stable from 12/02/2021, likely an samantha maxewll. There is a 2.1 cm mass in left adrenal gland, stable from 12/02/2021, likely an adenoma. There ar e cysts in the kidneys measuring up to 5 mm. There is focal volume loss of left kidney. The prostate is mildly enlarged. There is diffuse bladder wall thickening, likely secondary to chronic outlet obst ruction. The appendix is normal. There are no dilated loops of bowel. There are no pathologically enl arged lymph nodes. There is no free intraperitoneal fluid. There is a small left inguinal hernia cont aining fat. There is calcified atherosclerosis of the aorta and many of the other arteries. There is mild thoracic and lumbar spondylosis. There is mild chronic anterior wedging of T12-L2 vertebral bodi es. IMPRESSION: 1. No specific etiology for the patient's symptoms. Reviewed, dictated and finalized at location A.
--- NOTE | 2023-11-21 11:51 | ED.GENADULT ---
HPI - General Adult General Chief complaint: Back Pain/Injury Stated complaint: L testicle pain, low back pain Time Seen by Provider: 11/21/23 10:42 History of Present Illness HPI narrative: This is a 48-year-old male with a history of chronic lower back pain, diverticulitis and kidney stones presenting for left lower quadrant back abdominal and testicle pain. Symptoms started 5 days ago. He has been taking Motrin Tylenol with minimal relief. The pain is described as a combination burning sharp stabbing aching and cramping. Radiates from the left lower back into the left lower abdomen and left testicle. It is severe in intensity and constant. No alleviating or exacerbating symptoms. Last bowel movement was earlier today and was constipated which is normal for patient. No fevers chills nausea vomiting or urinary symptoms. Related Data Home Medications Medication Instructions Recorded Confirmed amoxicillin 500 mg tablet 500 mg PO Q12H 11/08/23 11/08/23 Allergies Allergy/AdvReac Type Severity Reaction Status Date / Time No Known Allergies Allergy Verified 11/21/23 10:54 [facility] Past Medical History Medical History Acute prostatitis Alcohol-induced acute pancreatitis without infection or necrosis Allergies Anxiety Erectile dysfunction Generalized anxiety disorder GERD (gastroesophageal reflux disease) Hepatic steatosis HTN (hypertension) Hyperlipidemia Kidney stones Lumbar radiculopathy Obesity Polysubstance (including opioids) dependence with physiological dependence Spinal stenosis of lumbar region Tachycardia Surgical History Surgical History Status post cystoscopy Family History Family History Father Diabetes mellitus Hypertension Depression Anxiety Grandparent Diabetes mellitus Hypertension Social History Social History Social History: Patient currently this is his girlfriend Ludivina Driscoll. Patient stated that she will be his surrogate if he is unable to make his own decisions. He also denies having kids however he does have 2 dogs. Patient wishes to be a full code at this time. Smoking packs per day: 1 Smoking cigarettes per day: 20.0 Years smoked: 35 Smoking pack-years: 35.00 Smoking status: Current every day smoker Tobacco type: cigarettes Second hand tobacco smoke exposure: Yes Alcohol intake: former Alcohol use details: Stopped drinking about 4 years ago Substance use: never Substance use type: does not use Do You Feel Safe in your Home?: Yes Lack of Transportation: No Lack of Food: Never True Current Housing: I Have Housing Concerned About Future Housing: No Difficulty Paying Gas/Electric Bills: No Difficulty Paying for Meds: No Currently Unemployed: No Education: High School Diploma/GED Difficulty w/ Childcare or Family Care: No Living arrangements: other Additional living arrangements comments: With significant other Ludivina Driscoll Occupation/Education: occupation Additional occupation/education comments: Keith [employer] for [employer] Gender identity (if verbalized by the patient): Male Sexual Orientation (if Verbalized by the Patient): Straight or Heterosexual Spiritual care concerns: No Agree to blood products: Yes Exam Narrative: APPEARANCE: No apparent distress. Head: atraumatic. EYES: EOMI, NOSE: Atraumatic NECK /Back: tenderness palpation in the left paralumbar muscles RESPIRATORY: No increased rate of breathing CARDIOVASCULAR: RRR, ABDOMINAL: Mild suprapubic tenderness, no other tenderness. No left CVA tenderness. Testicle exam revealed normal external genitalia, a normal lie, no epididymal tenderness MUSCULOSKELETAl: No obvious deformities NEURO: Alert. Moving 4/4 extremities SKIN
[2023-11-21] MEDS: KETOROLAC 15 MG/ML VIAL (*BKC) IV PUSH (12:13)
[2023-11-21] MEDS: ACETAMINOPHEN 500 MG TABLET 1000 MG PO (12:13)
[2023-11-21 12:14] LABS: Basophils Percent Auto 0.2 % (0.2-1.2); Eosinophils Absolute Auto 0.1 K/mm3 (0-0.3); Eosinophils Percent Auto 1.2 % (0-4.4); Hematocrit 44.3 % (42.0-52.0); Hemoglobin 14.9 g/dL (14.0-18.0); Immature Granulocyte Absolute 0.03 K/mm3 (0.00-0.031); Immature Granulocyte Percent A 0.3 % (0-0.5); Lymphocytes Absolute Auto 2.22 K/mm3 (0.9-3.2); Lymphocytes Percent Auto 19.6 % (18.3-44.2); Mean Corpuscular HGB Conc 33.6 g/dl (32-36); Mean Corpuscular Hemoglobin 30.4 pg (26-34); Mean Corpuscular Volume 90.4 fl (80-100); Mean Platelet Volume 9.2 fl (7.4-10.4); Monocytes Absolute Auto 0.7 K/mm3 (0.1-0.6); Monocytes Percent Auto 6.3 % (2.6-8.5); Neutrophils Absolute Auto 8.2 K/mm3 (1.3-6.7); Neutrophils Percent Auto 72.4 % (45.5-73.1); Platelet Count Result 228 k/mm3 (150-375); Red Cell Distribution Width 13.1 % (11.5-14.5); White Blood Count 11.3 K/mm3 (4.5-10.0)
--- NOTE | 2023-11-21 12:23 | PC.NURSE ---
Patient educated on need of a urine sample. patient given a urinal due to pain decreasing mobility. patient verbalizes understanding of using the urinal to get a urine sample.
[2023-11-21 12:24] LABS: Alanine Aminotransferase 24 U/L (6-50); Alkaline Phosphatase 48 U/L (38-126); Anion Gap 5 mmol/L (4-12); Aspartate Amino Transferase 25 U/L (17-59); Bilirubin,Total 0.5 mg/dL (0.2-1.3); Blood Urea Nitrogen 20 mg/dL (9-20); Calcium 9.1 mg/dL (8.4-10.2); Carbon Dioxide 27 mmol/L (22-30); Chloride 109 mmol/L (98-107); Estimated CRCL calculation 109 ml/min; Estimated Glomerular Filt Rate > 60; Glucose 101 mg/dL (65-110); Potassium 4.2 mmol/L (3.4-5.0); Sodium 141 mmol/L (137-145)
[2023-11-21 14:04] LABS: Appearance Urine Clear (Clear); Bacteria Urine None Seen /hpf; Bilirubin Urine Negative (Negative); Blood Urine Negative (Negative); Color Urine Yellow (Yellow); Glucose Urine UA Negative (Negative); Ketones Urine Negative (Negative); Leukocyte Esterase Ur Negative LEU/UL (Negative); Nitrate Urine Negative (Negative); Non Pathogenic Casts 0-2; Protein Urine 1+ mg/dL (Negative); RBC Urine 0-2 /hpf (0-2); Squamous Epithelial Cell Urine None Seen /hpf (Few); WBC Urine 0-5 /hpf (0-3); pH Urine 8.5 (5.0-9.0)
[2023-11-21 14:09] LABS: Add Urine Microscopic? YES; Specific Grav Ur 1.033 (1.001-1.035)
== END 2023-11-21 15:12 | disposition home or self-care (01) ==
PROVIDERS: Emergency Provider Emergency Medicine; PCP Internal Medicine
DX: M54.50 Low back pain, unspecified (principal); G89.29 Other chronic pain; I10 Essential (primary) hypertension; E78.5 Hyperlipidemia, unspecified; F17.210 Nicotine dependence, cigarettes, uncomplicated
CPT/HCPCS: 36415; 74177; 76870; 80053; 81001; 85025; 93976; 96374; 99284; A9270; J1885; Q9967

== ENCOUNTER 2023-11-27 22:46 | Emergency (ER) | payer BC, SELFPAY ==
[2023-11-27 22:51] VITALS: BP 128/88; PULSE 86; RESP 16; TEMP 36.3; O2SAT 100
--- NOTE | 2023-11-28 00:15 | ED.LOWEXIN ---
HPI - Extremity Injury (Lower) General Chief Complaint: Extremity Injury, Lower Stated Complaint: lower back pain Time Seen by Provider: 11/27/23 23:58 Source: patient Mode of arrival: ambulatory Limitations: no limitations History of Present Illness HPI Narrative: this is a 48-year-old male who presents to the ED for chief complaint repeat bout of acute on chronic back pain. Patient has known lumbar stenosis and feels that his back is flaring up. Patient states that he was given prescriptions for muscle relaxers and ibuprofen from our ED a week ago it is starting to run out of these. Reports that the pain is causing difficulties with sleeping but during the day he feels okay. Endorses pain that radiates from lower back and to left thigh and left lower leg. Denies groin numbness, lower extremity numbness or weakness. Denies fevers, chills, nausea, vomiting. Denies long-term steroid use or IV drug use. Related Data Home Medications Medication Instructions Recorded Confirmed amoxicillin 500 mg tablet 500 mg PO Q12H 11/08/23 11/08/23 Allergies Allergy/AdvReac Type Severity Reaction Status Date / Time No Known Allergies Allergy Verified 11/27/23 23:58 Review of Systems Review of Systems: All systems as dictated in HPI [facility] Past Medical History Medical History Acute prostatitis Alcohol-induced acute pancreatitis without infection or necrosis Allergies Anxiety Erectile dysfunction Generalized anxiety disorder GERD (gastroesophageal reflux disease) Hepatic steatosis HTN (hypertension) Hyperlipidemia Kidney stones Lumbar radiculopathy Obesity Polysubstance (including opioids) dependence with physiological dependence Spinal stenosis of lumbar region Tachycardia Surgical History Surgical History Status post cystoscopy Family History Family History Father Diabetes mellitus Hypertension Depression Anxiety Grandparent Diabetes mellitus Hypertension Social History Social History Social History: Patient currently this is his girlfriend Ludivina Driscoll. Patient stated that she will be his surrogate if he is unable to make his own decisions. He also denies having kids however he does have 2 dogs. Patient wishes to be a full code at this time. Smoking packs per day: 1 Smoking cigarettes per day: 20.0 Years smoked: 35 Smoking pack-years: 35.00 Smoking status: Current every day smoker Tobacco type: cigarettes Second hand tobacco smoke exposure: Yes Alcohol intake: former Alcohol use details: Stopped drinking about 4 years ago Substance use: never Substance use type: does not use Do You Feel Safe in your Home?: Yes Lack of Transportation: No Lack of Food: Never True Current Housing: I Have Housing Concerned About Future Housing: No Difficulty Paying Gas/Electric Bills: No Difficulty Paying for Meds: No Currently Unemployed: No Education: High School Diploma/GED Difficulty w/ Childcare or Family Care: No Living arrangements: other Additional living arrangements comments: With significant other Ludivina Driscoll Occupation/Education: occupation Additional occupation/education comments: [email or web address] Gender identity (if verbalized by the patient): Male Sexual Orientation (if Verbalized by the Patient): Straight or Heterosexual Spiritual care concerns: No Agree to blood products: Yes Exam Narrative: GENERAL: Well-appearing, well-nourished, and in no acute distress. HEAD: Normocephalic, atraumatic. EYES: PERRLA and EOMI. ENT: Nares clear, no rhinorrhea or epistaxis. Mucous membranes moist. Oropharynx without tonsillar hypertrophy exudate or other lesions. NECK: Supple. No adenopathy or masses. CHEST: No r
[2023-11-28] MEDS: KETOROLAC 30 MG/ML VIAL (*BKC) IM (00:34)
[2023-11-28] MEDS: LIDOCAINE 5% PATCH 1 PATCH TRANSDERM (00:34)
[2023-11-28] MEDS: ACETAMINOPHEN 500 MG TABLET 1000 MG PO (00:34)
--- NOTE | 2023-11-28 01:36 | PC.NURSE ---
Pt requesting additional pain medication. SHAMEKA Emmanuel notified.
== END 2023-11-28 01:46 | disposition home or self-care (01) ==
PROVIDERS: Emergency Provider Physician Assistant; PCP Internal Medicine
DX: M54.50 Low back pain, unspecified (principal); G89.29 Other chronic pain; I10 Essential (primary) hypertension; E78.5 Hyperlipidemia, unspecified; K21.9 Gastro-esophageal reflux disease without esophagitis; F17.210 Nicotine dependence, cigarettes, uncomplicated; Z87.442 Personal history of urinary calculi; E66.9 Obesity, unspecified; Z68.24 Body mass index [BMI] 24.0-24.9, adult; Z79.899 Other long term (current) drug therapy
CPT/HCPCS: 96372; 99283; A9270; J1885

== ENCOUNTER 2024-02-14 15:04 | Outpatient (CLI) | payer BC, SELFPAY ==
[2024-02-14 20:43] LABS: Prostate Specific Antigen 5.1 ng/mL (< OR = 4.0)
== END 2024-02-14 15:05 | disposition home or self-care (01) ==
LOC: ANHGOSHLAB 15:06
PROVIDERS: Nurse Practitioner; PCP Internal Medicine; Visit Provider Internal Medicine
DX: R97.20 Elevated prostate specific antigen [PSA] (principal); Z12.5 Encounter for screening for malignant neoplasm of prostate
CPT/HCPCS: 36415; 84153

== ENCOUNTER 2024-09-02 11:06 | Emergency (ER) | payer BC, SELFPAY ==
[2024-09-02 11:18] VITALS: BP 129/87; PULSE 70; RESP 16; TEMP 36.4; O2SAT 99
--- NOTE | 2024-09-02 11:21 | ED_ITS ---
HPI - General Adult General Chief complaint: Dental/Oral Stated complaint: Tooth and Gingival Infection/Pain Time Seen by Provider: 09/02/24 11:21 Source: patient Mode of arrival: ambulatory Limitations: no limitations History of Present Illness HPI narrative: 48-year-old male patient presents to the [facility] with complaints of left upper and right lower dental pain. Patient does have history of gingivitis and does have chronic dental pain but states over the past 1-2 weeks the pain has increased and has been causing headaches body aches and chills. Denies fevers that he is aware of. Patient states he has been taking Tylenol and ibuprofen for pain. Patient states that he does have a follow-up with a dentist on September 12 to have some teeth extracted. Related Data Allergies Allergy/AdvReac Type Severity Reaction Status Date / Time No Known Allergies Allergy Verified 09/02/24 11:09 Review of Systems Review of Systems: CONSTITUTIONAL: Denies fever, chills, or sweats. EYES: Denies visual changes, redness, or discharge. ENT: Denies rhinorrhea, congestion, sore throat, or otalgia. Positive left upper and right lower dental pain x2 weeks CARDIOVASCULAR: Denies chest pain, palpitations, or edema. RESPIRATORY: Denies cough or dyspnea. GASTROINTESTINAL: Denies abdominal pain, nausea, vomiting, or diarrhea. GENITOURINARY: Denies dysuria or hematuria. SKIN: Denies rash or itching. MUSCULOSKELETAL: Denies back pain, joint pain, or myalgia. NEUROLOGIC: Denies headache, numbness, or weakness. PSYCHIATRIC: Denies anxiety or depression. [facility] Past Medical History Medical History Polysubstance (including opioids) dependence with physiological dependence Anxiety Allergies Kidney stones Acute prostatitis Alcohol-induced acute pancreatitis without infection or necrosis Erectile dysfunction Generalized anxiety disorder Hepatic steatosis Lumbar radiculopathy Spinal stenosis of lumbar region Tachycardia Obesity GERD (gastroesophageal reflux disease) Hyperlipidemia HTN (hypertension) Surgical History Surgical History Status post cystoscopy Family History Family History Father Diabetes mellitus Hypertension Depression Anxiety Grandparent Diabetes mellitus Hypertension Social History Social History Social History: Patient currently this is his girlfriend Ludivina Driscoll. Patient stated that she will be his surrogate if he is unable to make his own decisions. He also denies having kids however he does have 2 dogs. Patient wishes to be a full code at this time. Smoking packs per day: 1 Smoking cigarettes per day: 20.0 Years smoked: 35 Smoking pack-years: 35.00 Smoking status: Current every day smoker Tobacco type: cigarettes Second hand tobacco smoke exposure: Yes Alcohol intake: former Alcohol use details: Stopped drinking about 4 years ago Substance use: never Substance use type: does not use Do You Feel Safe in your Home?: Yes Lack of Transportation: No Lack of Food: Never True Current Housing: I Have Housing Concerned About Future Housing: No Difficulty Paying Gas/Electric Bills: No Difficulty Paying for Meds: No Currently Unemployed: No Education: High School Diploma/GED Difficulty w/ Childcare or Family Care: No Living arrangements: other Additional living arrangements comments: With significant other Ludivina Driscoll Occupation/Education: occupation 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 There is no relevant family history pertinent to the presenting complaint. Exam Narrative: GENERAL: Well-appearing, well-nourished, and in no acute distress. HEAD: Normocephalic, atraumatic. EYES: PERRLA and EOMI. ENT: Nares clear, no rhinorrhea or epistaxis. Mucous membranes moist. patient does have some swelling slight erythema with tenderness noted to the gums on the right lower oral cavity. Tenderness noted to the left upper oral cavity along the gums but no erythema or open wounds noted. NECK: Supple. No lymphadenopathy CHEST: Clear to auscultation. No respiratory distress. HEART: Regular rate and rhythm. No murmur heard. Normal peripheral pulses. ABDOMEN: Soft, nontender, nondistended, normal active bowel sounds. EXTREMITIES: Normal range of motion. No edema. SKIN: Warm, dry, no rash. NEURO: No focal deficits. Alert and oriented x3. Course Course Level of Care: Express Care Visit Vital Signs Vital signs: Vital Signs Temperature 36.4 C 09/02/24 11:18 Pulse Rate 70 09/02/24 11:18 Respiratory Rate 16 09/02/24 11:18 Blood Pressure 129/87 09/02/24 11:18 Pulse Oximetry 99 09/02/24 11:18 Temperature 36.4 C 09/02/24 11:18 Pulse Rate 70 09/02/24 11:18 Respiratory Rate 16 09/02/24 11:18 Blood Pressure 129/87 09/02/24 11:18 Pulse Oximetry 99 09/02/24 11:18 Vital signs reviewed. Medical Decision Making MDM Narrative Medical decision making narrative: Plan of care for patient is discharge home with oral antibiotics and have him follow-up with his primary dentist as scheduled on September 12. Patient may continue taking Tylenol and ibuprofen as needed for pain. Patient verbalized understanding denies any other questions or concerns at this time. Differential Diagnosis Differential Diagnosis: Differential diagnosis: Dental caries, periodontal disease, avulsed tooth, tooth infections, mandibular infection, Vitaliy's angiana, upper tooth infection, dry socket, gingivitis, acute necrotizing ulcerative gingivitis, sialolithiasis. Vital Signs Vital Signs: Vital Signs Temperature 36.4 C 09/02/24 11:18 Pulse Rate 70 09/02/24 11:18 Respiratory Rate 16 09/02/24 11:18 Blood Pressure 129/87 09/02/24 11:18 Pulse Oximetry 99 09/02/24 11:18 Temperature 36.4 C 09/02/24 11:18 Pulse Rate 70 09/02/24 11:18 Respiratory Rate 16 09/02/24 11:18 Blood Pressure 129/87 09/02/24 11:18 Pulse Oximetry 99 09/02/24 11:18 Critical Care Time Critical Care Time Critical Care Time: No Discharge Plan Discharge Clinical Impression: Dental infection Patient Disposition: Home Condition: Stable Instructions: Antibiotic Form, Gingivitis (DC) Additional Instructions: Antibiotic as directed Avoid temperature extremes May apply heat or ice to the face Gentle brushing and flossing Alternate Tylenol and ibuprofen as needed for pain Follow-up with the dentist as soon as possible--see the list provided Patient Language: Tristanian Prescriptions: New amoxicillin-pot clavulanate 875-125 mg tablet 1 tablet PO Q12H 7 Days Qty: 14 0RF No Action omeprazole magnesium [Prilosec OTC] 20 mg tablet,delayed release (DR/EC) 20 mg PO DAILY Qty: 90 1RF escitalopram oxalate 20 mg tablet 20 mg PO DAILY Qty: 90 3RF atorvastatin 10 mg tablet 10 mg PO DAILY Qty: 90 1RF lisinopril 10 mg tablet See Rx Instructions .ROUTE .COMPLEX Qty: 90 0RF Dose Instruction: TAKE 1 TABLET BY MOUTH DAILY Rx Instructions: TAKE 1 TABLET BY MOUTH DAILY gabapentin 300 mg capsule See Rx Instructions .ROUTE .COMPLEX Qty: 270 0RF Dose Instruction: TAKE 1 CAPSULE BY MOUTH DAILY FOR 3 DAYS THEN 1 TWICE DAILY FOR 3 DAYS THEN 1 CAPSULE THREE TIMES DAILY Rx Instructions: TAKE 1 CAPSULE BY MOUTH DAILY FOR 3 DAYS THEN 1 TWICE DAILY FOR 3 DAYS THEN 1 CAPSULE THREE TIMES DAILY Follow-up/Referrals: Faisal Gill DO [Primary Care Provider] - Time of Disposition: 11:30
== END 2024-09-02 11:32 | disposition home or self-care (01) ==
PROVIDERS: Emergency Provider Nurse Practitioner Family; PCP Internal Medicine
DX: K04.7 Periapical abscess without sinus (principal); F17.210 Nicotine dependence, cigarettes, uncomplicated; I10 Essential (primary) hypertension; E78.5 Hyperlipidemia, unspecified; K21.9 Gastro-esophageal reflux disease without esophagitis; E66.9 Obesity, unspecified; Z68.25 Body mass index [BMI] 25.0-25.9, adult; M48.061 Spinal stenosis, lumbar region without neurogenic claudication; K76.0 Fatty (change of) liver, not elsewhere classified; F41.1 Generalized anxiety disorder
CPT/HCPCS: 99213; G0463

== ENCOUNTER 2025-03-22 08:49 | Outpatient (CLI) | payer BC, SELFPAY ==
--- OUTSIDE RECORDS SUMMARY | 2025-03-22 09:05 | XMS_ITS | Clinical Summary ---
Author Organization [facility] Address [address] [place] [address] Care Team Providers Care Gypsum Roofer Name Role Phone EliezerFaisal eason Julio Primary Care Provider Allergies No known active allergies Medications acetaminophen (TYLENOL) 500 mg tablet TAKE 2 TABLETS BY MOUTH THREE TIMES DAILY NEEDED FOR PAIN FOR 7 DAYS. 11/21/2023 Active amoxicillin 500 mg capsule 12/15/2023 Active gabapentin (NEURONTIN) 300 mg capsule 1 capsule (300 mg total) 3 (three) times a day 12/01/2023 Active HYDROcodone-enoc taminophen (NORCO) 5-325 mg per tablet Take by mouth every 8 (eight) hours as needed 12/01/2023 Active ibuprofen (ADVIL,MOTRIN) 800 mg tablet TAKE 1 TABLET BY MOUTH THREE TIMES DAILY FOR 7 DAYS NEEDED FOR PAIN 11/21/2023 Active lisinopriL (PRINIVIL,ZESTR IL) 10 mg tablet Take 1 tablet (10 mg total) by mouth daily 11/18/2023 Active methocarbamoL (ROBAXIN) 750 mg tablet Take by mouth 3 (three) times a day 11/21/2023 Active omeprazole 20 mg tablet,delayed release (DR/EC) Take 1 tablet (20 mg total) by mouth daily 10/16/2023 Active atorvastatin (LIPITOR) 10 mg tablet Take 1 tablet (10 mg total) by mouth daily 01/02/2024 Active escitalopram (LEXAPRO) 20 mg tablet Take 1 tablet (20 mg total) by mouth daily 01/02/2024 Active Active Problems No known active problems Surgical History Surgery Date Site/Laterality Comments HERNIA REPAIR FL UPPER GI AIR CONTRAST W KUB 01/13/2024 Left Medical History Medical History Date Comments ADHD (attention deficit hyperactivity disorder) Addiction to drug (HCC) Arthritis Family History Medical History Relation Name Comments Alcohol abuse Father Hypertension Father Relation Name Status Comments Father Social History Tobacco Use Types Packs/Day Years Used Date Smoking Tobacco: Every Day Cigarettes 1 1.3 Started: 12/16/2023; Last attempted to quit: 12/18/1993 Smokeless Tobacco: Never Tobacco Cessation:Ready to Q uit: Not Asked; Counseling Given: Not Answered AUDIT-C Answer Date Recorded Q1: How often do you have a drink containing alcohol? Never 01/09/2024 Q2: How many drinks containi ng alcohol do you have on a typical day when you are drinking? Patient does not drink Q3: How often do you have si x or more drinks on one occasion? Never 01/09/2024 Personal Safety Answer Date Recorded Have you ever been in or are you currently in a harmful physical or emotional relationship or is someone making you feel afraid or unsafe? 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 Not on file Not on file Not on file Obstetrics History Last Filed Vital Signs Vital Sign Reading Time Taken Comments Blood Pressure 164/109 01/13/2024 11:12 AM CDT Pulse 67 01/13/2024 11:12 AM CDT Temperature - - Respiratory Rate - - Oxygen Saturation 99% 01/13/2024 11:12 AM CDT Inhaled Oxygen Concentration - - Weight 74.8 kg (165 lb) 01/08/2024 3:12 PM CDT Height 175.3 cm (5' 9) 01/08/2024 3:12 PM CDT Body Mass Index 24.37 01/08/2024 3:12 PM CDT Plan of Treatment Health Maintenance Due Date Last Done Comments Colon Cancer Screening-Colonoscopy 1973 Depression Screening 1973 Hepatitis C Screening 1973 Prostate Cancer Screening-PSA 1973 DTaP/Tdap/Td Vaccine (1 - Tdap) 1984 Hepatitis B Screening 11/06/1991 Regular Well Visit/Exam 18-64 11/06/1991 Pneumococcal vaccine <65 (1 of 2 - PCV) 1992 Zoster Vaccine (1 of 2) 11/06/2023 Influenza Vaccine (#1) 2025 Insurance SupportPay [place] SupportPay [place] Care Teams Gypsum Roofer Relationship Specialty Start Date End Date Faisal Gill DO PCP - General Internal Medicine 12/09/23
[2025-03-22 14:23] LABS: Hematocrit 44.6 % (42.0-52.0); Hemoglobin 14.9 g/dL (14.0-18.0); Immature Granulocyte Percent A 0.2 % (0-0.5); Lymphocytes Absolute Auto 2.25 K/mm3 (0.9-3.2); Mean Corpuscular HGB Conc 33.4 g/dl (32-36); Mean Corpuscular Hemoglobin 31.4 pg (26-34); Mean Corpuscular Volume 93.9 fl (80-100); Nucleated Red Blood Cells Absolute Auto 0.000 K/mm3 (0.0-0.012); Nucleated Red Blood Cells Perc 0.0 % (0.0-0.2); Platelet Count Result 249 k/mm3 (150-375); Red Blood Count 4.75 M/mm3 (4.6-6.20); White Blood Count 10.2 K/mm3 (4.5-10.0)
[2025-03-22 15:07] LABS: Alanine Aminotransferase 26 U/L (6-50); Albumin Level 4.5 g/dL (3.5-5.1); Alkaline Phosphatase 52 U/L (38-126); Anion Gap 7 mmol/L (4-12); Aspartate Amino Transferase 71 U/L (17-59); Bilirubin,Total 0.5 mg/dL (0.2-1.3); Blood Urea Nitrogen 22 mg/dL (9-20); Calcium 9.4 mg/dL (8.4-10.2); Carbon Dioxide 27 mmol/L (22-30); Chloride 104 mmol/L (98-107); Cholesterol 181 mg/dL (0-200); Estimated Glomerular Filt Rate > 60; Glucose 107 mg/dL (65-110); HDL Direct 43 mg/dL; MALB Creatinine Ratio 5.4 mg/g (0-30); Magnesium 2.0 mg/dL (1.6-2.3); Potassium 4.3 mmol/L (3.4-5.0); Sodium 138 mmol/L (137-145); Total Protein 7.2 g/dL (6.3-8.2); Triglycerides 82 mg/dL (<150)
[2025-03-22 15:17] LABS: Hemoglobin A1C 5.5 % (<5.7)
[2025-03-22 15:42] LABS: Prostate Specific Antigen 7.6 ng/mL (< OR = 4.0); Thyroid Stimulating Hormone 1.970 uIU/mL (0.465-4.680)
[2025-03-22 16:01] LABS: Vitamin B12 654.0 pg/mL (239-931)
== END 2025-03-22 08:50 | disposition home or self-care (01) ==
LOC: ANHGOSHLAB 08:49
PROVIDERS: PCP Internal Medicine; Visit Provider Clinical Nurse Specialist
DX: Z12.5 Encounter for screening for malignant neoplasm of prostate (principal); Z13.29 Encounter for screening for other suspected endocrine disorder; I10 Essential (primary) hypertension; K21.9 Gastro-esophageal reflux disease without esophagitis; E78.2 Mixed hyperlipidemia; R20.0 Anesthesia of skin; R20.2 Paresthesia of skin; R97.20 Elevated prostate specific antigen [PSA]; F41.9 Anxiety disorder, unspecified; R73.01 Impaired fasting glucose; F17.200 Nicotine dependence, unspecified, uncomplicated
CPT/HCPCS: 36415; 80053; 80061; 82043; 82607; 83036; 83735; 84153; 84443; 85025; G0103

== ENCOUNTER 2025-04-25 00:58 | Day surgery (SDC) | payer BC, SELFPAY ==
--- OUTSIDE RECORDS SUMMARY | 2018-10-23 13:25 | XMS_ITS | Continuity of Care Document ---
[facility] Organization [facility] Address [address] [place] [address] Phone Care Team Providers Care E Merchant Name Role Phone Omari PT,MPT,ATC, Cholo Unavailable Unavai lable Procedures Procedure Date Therapeutic Exercise Therapeutic Activities Neuromuscular Re-Ed Manual Therapy Progress Note Therapeutic Exercise Therapeutic Activities Neuromuscular Re-Ed Hot or Cold Pack Electrical Stimulation Therapeutic Exercise Therapeutic Activities Neuromuscular Re-Ed Hot or Cold Pack Electrical Stimulation Therapeutic Exercise Therapeutic Activities Neuromuscular Re-Ed Manual Therapy Hot or Cold Pack Electrical Stimulation Therapeutic Exercise Therapeutic Activities Neuromuscular Re-Ed Manual Therapy Hot or Cold Pack Electrical Stimulation Changing And Maintaining Body Position-Lis ryan PT Evaluation Moderate Complexity Therapeutic Exercise Therapeutic Activities Neuromuscular Re-Ed Advance Directives Directive Yes / No Effective Date File Name No Information Encounters Encounter Description Practice Location Reason(s) For Visit Diagnoses Date Provider Providers Copied on Encounter [facility], [address], [place], [place], [id number], [place] tel:[phone] [place] No Information Oct-0 9 Salcido Cholo. , [place], [place]. [facility] [address], [place], [place], [id number], tel:[phone] [place] Low back pain September-2 8 9 Junior Sales. [address] [facility], [address], [place], [address], [place]. tel:[phone] Referring Provider: Erin Delong, [address], [place], [address]. tel:[phone] [facility] [address], [place], [place], [id number], [place] tel:[phone] [place] Low back pain September- 4 9 Niederhobailey Edwards. . Referring Provider: Erin Delong [address], [place], [address]. tel:[phone] [facility] [address], [place], [place], [id number], [place] tel:[phone] [place] Low back pain September- 2 9 Niederhoffer Grace. . Referring Provider: Erin Delong, [address], [place], [address]. tel:[phone] [facility] [address], [place], [place], [id number], [place] tel:[phone] [place] Low back pain September- 9 Omari Emmanuel. , [place], [place]. Referring Provider: Erin Delong [address], [place], [address]. tel:[phone] [facility], [place], [place], [id number], [place] tel:[phone] [place] Low back pain September- 9 Omari Sanchezn. , [place], [place]. Referring Provider: Erin Delong [address], [place], [address]. tel:[phone] [facility], [address], [place], [place], [id number], [place] tel:[phone] [place] Low back pain [address] [place], [place], [place]. Referring Provider: Erin Delong, [address] [address], [place], [address]. tel:[phone] Family History Family Member Type Diagnosis Age At Onset No Information Payers Payer name Insurance type Covered green party ID Authoriza tikaylyn(s) [employer] EPO WC SP WC [id number] Social History Type Description Quantity Date Captured Comments Sex Male Smoking Status No Information Chief Complaint And Reason For Visit No Information Reason For Referral Reason For Referral No Information History Of Present Illness Encounter Date Complaint History Of Prese nt Illness No Information Functional Status Date Functional Assessmen t No Information Instructions Date Instruction Additional Infor mation No Information Assessments Type Assessment Date No Information Patient Care Teams Name Effective Dates (start - stop) Status Members No Information
--- OUTSIDE RECORDS SUMMARY | 2024-03-12 09:30 | XMS_ITS | Continuity of Care Document ---
Author Organization [facility] Address [address] [place] [address] Phone Care Team Providers Care Military Pilot Name Role Phone Diego Beasley PT Unavailable Unavailable Procedures Procedure Date Therapeutic Activities Neuromuscular Re-Ed Therapeutic Exercise Progress Note Therapeutic Activities Neuromuscular Re-Ed Therapeutic Exercise Neuromuscular Re-Ed Therapeutic Activities Therapeutic Exercise Feb- Therapeutic Activities Neuromuscular Re-Ed Therapeutic Exercise Feb- Therapeutic Activities Neuromuscular Re-Ed Therapeutic Exercise Therapeutic Activities Neuromuscular Re-Ed Jan- Therapeutic Exercise Jan- Therapeutic Activities Neuromuscular Re-Ed Jan- Therapeutic Exercise Jan- Therapeutic Activities Jan- Neuromuscular Re-Ed Jan- Therapeutic Exercise Jan- Therapeutic Activities Jan- Neuromuscular Re-Ed Jan- Therapeutic Exercise Jan- Therapeutic Activities Neuromuscular Re-Ed Jan- Therapeutic Exercise Jan- Therapeutic Activities Jan- Neuromuscular Re-Ed Jan- Therapeutic Exercise Jan- Therapeutic Activities Neuromuscular Re-Ed Therapeutic Exercise Jan- Therapeutic Activities Neuromuscular Re-Ed Therapeutic Exercise PT Evaluation Moderate Complexity Therapeutic Activities Neuromuscular Re-Ed Advance Directives Directive Yes / No Effective Date File Name No Information Encounters Encounter Description Practice Location Reason(s) For Visit Diagnoses Date Provider Providers Copied on Encounter [facility] [address] [address], [place], [place], [id number], tel:[phone] [place] No Information Ramos Hardy . Referring Provider: Marco A Loredo, [address] [place] [address], [facility]. tel:[phone] [facility] [address] [place] [address], [place], [place], [id number], tel:[phone] [place] No Information Ramos Hardy . Referring Provider: Marco A Loredo, [address] [place] [address] Office [facility] [address], [address]. tel:[phone] [facility] [address] [place] [address], [id number], [place] tel:[phone] [place] No Information Ramos Hardy . Referring Provider: Marco A Loredo [address] [place] [address] Office [facility] [address], [address]. tel:[phone], [id number], [place] tel:[phone] [place] No Information Ramos Hardy . Referring Provider: Marco A Loredo [address] [place] [address] Office [facility] [address], [facility]. tel:[phone] [facility] [address] [place] [address], [place], [id number], tel:[phone] [place] No Information Ramos Diego. . Referring Provider: Marco A Loredo, [address] [place] [address] Medical Office [facility] [address], [address]. tel:[phone] [facility], [address] [place] [address] 300, [place], [id number], [place] tel:[phone] [place] No Information Ramos Rahmanyn. . Referring Provider: Marco A Loredo, [address] [place] [address] Medical Office [facility] [address], [address]. tel:[phone] [facility], [address] [place], [place] [address]u[address], [place], [id number], [place] tel:[phone] [place] No Information Ramos Rahmanyn. . Referring Provider: Marco A Loredo, [address] [place] [address] Office [facility] [address], [address]. tel:[phone] [facility], [address] [place] [address], [place], [id number], [place] tel:[phone] [place] No Information Ramos Rahmanyn. . Referring Provider: Marco A Loredo, [address] [place] [address] Office [facility] [address], [address]. tel:[phone] [facility], [address] [place] [address], [place], [id number], [place] tel:[phone] [place] No Information Ramos Rahmanyn. . Referring Provider: Marco A Loredo, [address] [place] [address] Medical Office [facility] [address], [address]. tel:[phone] [facility], [address] [place] [address], [place], [id number], [place] tel:[phone] [place] No Information Ramos Rahmanyn. . Referring Provider: Marco A Loredo, [address] [place] [address] Office [facility] [address], [address]. tel:[phone] [facility], [address], [id number], tel:[phone] [place] No Information Alyx Solis. . Referring Provider: Marco A Loredo, [address] [place] [address], [facility]. tel:[phone], [id number], tel:[phone] [facility] No Information Ramos Hardy . Referring Provider: Macro A Loredo, [address] [place] [address], [facility]. tel:[phone], [id number], tel:[phone] [place] No Information Ramos Hardy . Referring Provider: Marco A Loredo, [address] [place] [address], [facility]. tel:[phone], [id number], tel:[phone] [place] No Information Ramos Cortez. . Referring Provider: Marco A Loerdo, [address] [place] [address], [facility]. tel:[phone] Family History Family Member Type Diagnosis Age At Onset No Information Payers Payer name Insurance type Covered green party ID Authordeena triana(s) [facility] [id number] Social History Type Description Quantity Date Captured Comments Sex Male Smoking Status No Information Chief Complaint And Reason For Visit No Information Reason For Referral Reason For Referral No Information Plan Of Treatment Date Type Action Status Goal Tobacco cessation counseling completed Goal Tobacco Cessation Counseling completed History Of Present Illness Encounter Date Complaint History Of Prese nt Illness No Information Functional Status Date Functional Assessmen t No Information Instructions Date Instruction Additional Infor mation No Information Assessments Type Assessment Date No Information Patient Care Teams Name Effective Dates (start - stop) Status Members No Information
[2025-04-16 12:31] VITALS: BMI 26.1
--- NOTE | 2025-04-16 12:38 | PC.NURSE ---
[facility] has started construction of its new state of the art ER which will open Spring 2026. With this, we anticipate parking may be a challenge for some our surgical patients and families. Parking spaces are limited but are available for all Surgical, obstetrics, and ER patients sharing this lot. If you arrive and find you are having a hard time finding a parking space, please note that we understand the challenges, please drive around the hospital and park near Hospital Entrance 1. When you enter this entrance, you can ask a volunteer to direct or take you back to the surgical waiting area to check in. We appreciate everyone?s understanding of these expected challenges while we build for your future. Report to the Outpatient Waiting Room, entrance under the green pavilion located off [address], at time _0830_ on date __04/25/25_. Planned Procedure Time: __1030.? Time changes happen often and if your time is changed the preop area will call you the afternoon before. - You and your visitor will be asked to self-screen and do not enter if you have any COVID symptoms. Please call surgeon if you need to reschedule. - A mask is optional within the hospital at this time. Patients may have clear liquids (water, carbonated beverages, clear teas, apple juice) until 3 hours prior to surgery with a maximum of 20 ounces. - No food from midnight until time of surgery and no smoking, or chewing tobacco (or any form of nicotine). No chewing gum, candy or mints. Take only the following medications with a SIP of water on the morning of surgery: ESCITALAPRAM DO NOT STOP ANY OF YOUR OTHER PRESCRIPTION MEDICATIONS PRIOR TO SURGERY EXCEPT THE FOLLOWING Hold all vitamins and supplements for 3 days per anesthesiologist. Medications to discontinue per physician Date to take last dose Please no make-up, nail uruguayan, hairspray, perfume, deodorant, or body powder the day of surgery.? No jewelry (including any body piercings) or valuables the day of surgery, leave them at home.? Please take a shower or bath the night before, or the morning of, surgery with an antibacterial soap.? Wear comfortable, loose fitting clothing.? Children are encouraged to wear pajamas. - Jewelry must be removed prior to entering the operating room.? Rings and piercings that are not removed may be cut off. - The hospital will not accept responsibility for valuables.? - Please leave all valuables, including medications, at home the day of surgery. If you are going home after surgery, a licensed guard driver must drive you home.? - NO public transportation without another adult if you receive anesthesia. - We recommend that an adult stay with you for 24 hours following discharge. - We also recommend that you do not drive, make important decision, drink alcoholic beverages, or take any drugs that were not prescribed by your health care provider for at least 24 hours after your discharge time. For Pediatric surgeries, we recommend two adults accompany the child home. Follow any additional instructions given to you from your surgeon. Telephone instructions given to __PATIENT___and asked if any additional questions and then verbalized understanding. Patient advised to call surgeon office or pre surgery nurse liaison [phone] if any additional questions.
--- OUTSIDE RECORDS SUMMARY | 2025-04-25 01:01 | XMS_ITS | Clinical Summary ---
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
--- NOTE | 2025-04-25 06:29 | WPDHPUPDATE1 ---
History and Physical Update Update Date/Time: 04/25/25 06:29 History and Physical has been reviewed, including an updated exam of the patient. There are NO changes in the patient's condition. Risks, benefits, and alternatives have been discussed and questions answered. Patient agrees to proceed with procedure.
[2025-04-25 08:20] VITALS: BP 129/80; PULSE 59; RESP 16; TEMP 36.3; O2SAT 97
[2025-04-25] MEDS: LACTATED RINGERS 1,000 ML 30 ML IV CONT (08:57)
--- NOTE | 2025-04-25 09:04 | S_PTH ---
PATIENT: Jose Jesus [place] [facility][id number] AGE/SX: 49/M ROOM: RE04/25/[address]: Dewayne Chakraborty MD : 1975 BED: DIS: 04/25/2025 SPEC #: [id number] RECD: 04/25/25 11:38 STATUS: KIMI REQ #: [id number] ADAM: 04/25/25 09:[address]: Dewayne Chakraborty DEPT: [facility] Surgical RECD BY: Jamilah Medina ENTERED: 04/25/25 11:40 SP TYPE: Surgical OTHR DR: Faisal Gill, DO Tissues: A - Prostate Bx B - Prostate Bx C - Prostate Bx D - Prostate Bx E - Prostate Bx F - Prostate Bx G - Prostate Bx H - Prostate Bx I - Prostate Bx J - Prostate Bx K - Prostate Bx L - Prostate Bx M - Prostate Bx N - Prostate Bx Procedures: Unstained Slides Hematoxylin and Eosin Stain Prostate Biopsy PIN 4 Prostate Triple Stain
--- NOTE | 2025-04-25 09:20 | WPDANESEPPF ---
Anes - Initial Pre Proc Eval Procedure: Operation Date: 04/25/25 10:30 Proposed Procedures p Transrectal Ultrasound Fusion Guided Prostate Biopsy - Dewayne Chakraborty MD Date/Time: 04/25/25 09:20 Surgeon: Dewayne Chakraborty MD Pre Op Diagnosis: elevated psa Patient Data Age: 49 Gender: M Height: 1.73 m Weight: 81.6 kg Last Vital Signs Temp 36.3 C L 04/25/25 08:20 Pulse 59 L 04/25/25 08:20 Resp 16 04/25/25 08:20 BP 129/80 04/25/25 08:20 Pulse Ox 97 04/25/25 08:20 O2 Del Method Room Air 04/25/25 08:20 Allergies Allergy/AdvReac Type Severity Reaction Status Date / Time No Known Allergies Allergy Verified 04/16/25 12:29 Home Medications ?Medication ?Instructions ?Recorded ?Confirmed ?Type lisinopril 10 mg tablet See Rx Instructions .Route 11/22/24 04/16/25 Rx .COMPLEX #90 tabs omeprazole magnesium 20 mg 20 mg PO DAILY #90 tabs 12/05/24 04/16/25 Rx tablet,delayed release (Prilosec OTC) escitalopram oxalate 20 mg tablet 20 mg PO DAILY #90 tabs 02/21/25 04/16/25 Rx atorvastatin 10 mg tablet 10 mg PO DAILY #90 tabs 04/08/25 04/16/25 Rx Patient hx anesthesia problems: none Family hx anesthesia problems: none Results Review: All pre-operative results and documents have been reviewed as part of the pre-operative evaluation. [facility] Past Medical History Medical History Prostatitis Acute pancreatitis Sepsis Extraction of tooth needed Polysubstance (including opioids) dependence with physiological dependence Anxiety Allergies Kidney stones Acute prostatitis Alcohol-induced acute pancreatitis without infection or necrosis Erectile dysfunction Generalized anxiety disorder Hepatic steatosis Lumbar radiculopathy Spinal stenosis of lumbar region Tachycardia Obesity GERD (gastroesophageal reflux disease) Hyperlipidemia HTN (hypertension) Surgical History Surgical History Status post cystoscopy Family History Family History Father Diabetes mellitus Hypertension Depression Anxiety Grandparent Diabetes mellitus Hypertension Social History Social History Social History: Patient currently this is his girlfriend Ludivina Driscoll. Patient stated that she will be his surrogate if he is unable to make his own decisions. He also denies having kids however he does have 2 dogs. Patient wishes to be a full code at this time. Smoking packs per day: 1 Smoking cigarettes per day: 20.0 Years smoked: 25 Smoking pack-years: 25.00 Smoking status: Current every day smoker Tobacco type: cigarettes Second hand tobacco smoke exposure: Yes Alcohol intake: former Alcohol use details: QUIT 2 MONTHS AGO , DRANK 2 BEERS DAILY Substance use: never Substance use type: does not use Lack of Transportation: No Lack of Food: Never True Current Housing: I Have Housing Concerned About Future Housing: No Difficulty Paying Gas/Electric Bills: No Difficulty Paying for Meds: No Currently Unemployed: No Education: High School Diploma/GED Difficulty w/ Childcare or Family Care: No Living arrangements: with family Additional living arrangements comments: With significant other Ludivina Driscoll Occupation/Education: occupation Additional occupation/education comments: [employer] Gender identity (if verbalized by the patient): Male Sexual Orientation (if Verbalized by the Patient): Straight or Heterosexual Spiritual care concerns: No Agree to blood products: Yes Anes - Eval Final PreProcedure Day of Procedure 04/25/25 09:20 Patient weight: overweight Heart: regular rate and rhythm Lungs: normal air movement Airway: Mallampati scale class II Neurological: alert and oriented Last oral intake: >/= 8 hours ASA classification: III Emergent: no Anesthetic plan: proceed Anesthesia type and monitoring: general GIVS and standard monitoring Results Review: All pre-operative results and documents have been reviewed as part of the pre-operative evaluation. Informed Consent: The patient's anesthetic plan and its attendant risks and benefits were discussed with the patient/family/POA. Questions were solicited and answers provided to the satisfaction of the patient/family/POA.
[2025-04-25] MEDS: cefTRIAXone 1 GM in SODIUM CHLORIDE 0.9% IV 50 ML 100 ML IVPB (10:14)
[2025-04-25 10:38] VITALS: BP 96/63; PULSE 62; RESP 16; O2SAT 93
--- NOTE | 2025-04-25 10:45 | W.PM.PROC2 ---
Procedure Note - Detailed Date of Procedure 04/25/25 Pre-op Diagnosis Elevated PSA / abnormal prostate MRI Post-op Diagnosis Same Procedure Performed UroNav prostate biopsy Surgeon Dewayne Chakraborty MD Anesthesia General Description of Procedure Patient is brought to the operative suite where he is positioned in the left lateral position. Systemic sedation is administered per the anesthesia department. Surgical time-out is undertaken and it's verified the patient has received preoperative antibiotics. Transrectal ultrasonography is undertaken with a standard transrectal probe. The ClipCard system is used to superimpose his previously obtained mpMRI prostate images on the real-time transrectal ultrasond images. Prostate volume is calculated at 41cc. On the previous mpMRI there are two regions of interest. Using the transrectal needle design for prostate biopsies 3 cores from each region of interest her obtain. We then proceeded with a standard 12 core prostate biopsy. Transrectal probe was removed and patient taken to recovery room having tolerated the procedure well. Blood loss was less than 10 cc.
[2025-04-25 11:08] VITALS: BP 114/73; PULSE 53; RESP 16
[2025-04-25] MEDS: oxyCODONE HCL (*CRX) 5 MG TAB IR PO (11:08)
== END 2025-04-25 11:30 | disposition home or self-care (01) ==
PROVIDERS: PCP Internal Medicine; Visit Provider Urology
PROC: (CPT 55700; principal; 2025-04-25 10:30)
DX: C61 Malignant neoplasm of prostate (principal); F17.210 Nicotine dependence, cigarettes, uncomplicated
CPT/HCPCS: 55700; 76872; 88344; A9270; G0416; J0696; J2003; J2250; J2704; J3010; J7120